=== PATIENT | female | born 1940 | race Caucasian/White ===

== ENCOUNTER 2016-05-12 06:04 | Day surgery (SDC) | payer OTHER ==
[~2016-05-12] VITALS: Ht 162.6 cm; Wt 84.0 kg
[~2016-05-12 06:04] MED LIST: ATOR40TA49 PO; CALCTAB11 OR; HCTZ25 PO; METO100T PO; MULT1TAB PO; NIFE1TAB85 PO; SERT-129 PO; VITA100017 PO; VITA400C28 PO; [UNRECOGNIZED DRUG - CODE] PO
[2016-05-12 06:58] VITALS: BP 143/92; PULSE 80; RESP 20; TEMP 97.8; O2SAT 90
[2016-05-12 07:34] LABS: AUTOMATED NEUTROPHIL # 7.4 TH/MM3 (1.8-7.7); BASOPHIL # 0.1 TH/MM3 (0-0.2); BASOPHIL % 0.6 % (0.0-2.0); EOSINOPHIL # 0.2 TH/MM3 (0-0.4); EOSINOPHIL % 1.6 % (0.0-4.0); HEMO FLAGS DIFF FINAL; LYMPH % 16.2 % (9.0-44.0); LYMPHOCYTE # 1.6 TH/MM3 (1.0-4.8); MEAN CORPUSCULAR HEMOGLOBIN 31.5 PG (27.0-34.0); MONO % 7.4 % (0.0-8.0); NEUT % 74.2 % (16.0-70.0); PLATELET COUNT 266 TH/MM3 (150-450); RED BLOOD COUNT 3.78 MIL/MM3 (4.00-5.30); RED CELL DISTRIBUTION WIDTH 14.1 % (11.6-17.2)
[2016-05-12 07:43] LABS: PROTHROMBIN TIME - PATIENT 11.3 SEC (9.8-11.6)
[2016-05-12 07:44] LABS: APTT (PATIENT) 28.3 SEC (24.3-30.1)
[2016-05-12] MEDS ORDERED: PRIL20CA9 PO (07:46)
[2016-05-12] MEDS ORDERED: AMLO5TAB2 PO (07:46)
[2016-05-12] MEDS ORDERED: ALPR0.25 PO (07:46)
[2016-05-12] MEDS ORDERED: HYDR25TA5 PO (07:46)
[2016-05-12] MEDS ORDERED: SERT-129 PO (07:46)
[2016-05-12] MEDS ORDERED: BUSP5TAB PO (07:46)
[2016-05-12] MEDS ORDERED: METO100T9 PO (07:46)
[2016-05-12] MEDS ORDERED: TRAM50TA PO (07:46)
[2016-05-12] MEDS ORDERED: ZOLP5TAB3 PO (07:46)
[2016-05-12] MEDS ORDERED: PERC7.5T13 PO (07:46)
[2016-05-12] MEDS ORDERED: LIDOCAINE 1%/EPINEPHrine 1:100,000 SOLN 30 ML VIAL ONE (07:56)
[2016-05-12] MEDS ORDERED: SODIUM CHLORIDE 0.9% 1000 ML IV SCH (08:00)
[2016-05-12] MEDS ORDERED: ceFAZolin 2 GM PREMIX 50 ML - implanted port/tunneled catheter insertion IV SCH (08:00)
[2016-05-12] MEDS ORDERED: CHLORHEXIDINE GLUCONATE 2 % 1 PACK (2 CLOTHS) TOPICAL SCH (08:00)
[2016-05-12] MEDS ORDERED: POVIDONE IODINE 5% (ANTISEPSIS KIT) 4 APPLICATIONS EACH NARE SCH (08:00)
[2016-05-12] MEDS ORDERED: VANCOMYCIN 1000 MG/NS 250 ML - implanted port/tunneled catheter IV SCH ×2 (08:00)
[2016-05-12] MEDS ORDERED: MIDAZOLAM HCL 5 MG/5 ML VIAL ONE (08:13)
[2016-05-12] MEDS ORDERED: fentaNYL CITRATE 250 MCG/5 ML AMP ONE (08:13)
[2016-05-12] MEDS ORDERED: IOHEXOL 350 MG/ML 50 ML BTL (for RAD DIAG) ONE (08:55)
[2016-05-12 09:30] VITALS: BP 134/78; PULSE 75; RESP 20; TEMP 98; O2SAT 90
[2016-05-12 09:45] VITALS: BP 125/78; PULSE 72; RESP 20; O2SAT 91
[2016-05-12 10:15] VITALS: BP 138/79; PULSE 74; RESP 20; O2SAT 90
--- NOTE | 2016-05-12 10:44 | PD.RAD ---
Post Procedure Progress Note Pre Procedure Diagnosis: (1) Lung cancer Post Procedure Diagnosis: (1) Lung cancer Procedure Date: May 12, 2016 Supervising Radiologist: Lanre Pearce Proceduralist/Assist: Princess Fajardo RT(R)(CV) Anesthesia: Local, Conscious Sedation Plan of Activity Patient to Unit: ROPU Patient Condition: Good See PACS Report for procedural detail/treatment Central Venous Access Device Procedure 1 Internal Jugular Infusaport Placement single lumen Welsh: 8 Lanre Pearce MD May 12, 2016 10:44
[2016-05-12 10:45] VITALS: BP 126/79; PULSE 77; RESP 20; O2SAT 92
[2016-05-12] MEDS ORDERED: SODIUM CHLORIDE 0.9% FLUSH 10 ML FLUSH IVF PRN (10:45)
[2016-05-12 11:31] VITALS: BP 122/72; PULSE 74; RESP 20; O2SAT 92
--- NOTE | 2016-05-12 14:10 | RADRPT ---
EXAM DATE/TIME: 05/12/2016 08:09 [facility] COMPARISON: No previous studies available for comparison. INDICATIONS : Patient with lung cancer in need of port placement for treatment. MEDICAL HISTORY : Lung cancer COPD Arthritis Anxiety Depression HTN History of ovarian cancer with chemo 1988 History of smoking quit 30 years ago SURGICAL HISTORY : Cyst removed from breast Bronch biopsy 2017 Colonoscopy 2006 Hysterectomy Appendectomy Hx of port placement ENCOUNTER: Initial ACUITY: 1 month PAIN SCORE: 0/10 FLUORO TIME: 5.5 minutes IMAGE SERIES: 1 SEDATION TIME: 60 minutes ACCESS: Left internal jugular vein SEDATION: 1.) 4 mg midazolam (Versed) IV 2.) 150 mcg fentanyl (Sublimaze) IV Prophylactic antibiotics were administered with appropriate pre-procedure timing. Vancomycin within 2 hours of procedure, Ancef (or alternative) within 1 hour of procedure. DEVICE: 1. 8 Macanese single lumen [id number]-[id number] PROCEDURE : 1. Continuous pulse oximetry and EKG monitoring. 2. Intravenous conscious sedation. 3. Ultrasound guidance for venous access. 4. Fluoroscopic guided implantable central venous port placement. The patient was placed supine. The neck was prepped in sterile fashion. Full sterile technique was u sed, including cap, mask, sterile gloves and gown, and a large sterile sheet. Hand hygiene and 2% ch lorhexidine Betadine was utilized per protocol for cutaneous antisepsis with appropriate dry time for site. The skin and subcutaneous tissues were infiltrated with local anesthetic solution. Under direct ultrasound guidance, central venous access was accomplished in the targeted vessel. The ultrasound images depicting access guidance were stored and saved to PACS for permanent record. A s ubcutaneous pocket was created using blunt dissection. The port was introduced to the pocket. The c atheter tubing was fed through a subcutaneous tunnel to the venotomy site. The catheter tubing was c ut to a suitable length and then was introduced through a valved Peel-Away sheath and positioned with catheter tubing tip at the cavo-atrial junction level. The pocket incision was closed with subcutic ular Vicryl suture. Steri-Strips were applied. The port was flushed and locked with heparin solutio n per protocol. Sterile dressing was applied to the site. The patient tolerated the procedure well. Conscious sedation was performed with the prescribed dosages and duration as above in the presence of an independent trained radiology nurse to assist in the monitoring of the patient. EKG and oximetry remained stable throughout the procedure. The patient tolerated the procedure well and there were no complications. The patient was sent to post anesthesia recovery in stable condition. CONCLUSION: Uncomplicated ultrasound and fluoroscopic guided implanted central venous port catheter placement as described in detail above. An 8 Macanese Power port was placed. Lanre Pearce MD on May 12, 2016 at 14:07 Board Certified Radiologist. This report was verified electronically.
== END 2016-05-12 11:36 | disposition home or self-care (01) ==
LOC: HROP 06:04 → HRIP 06:08 → HROP 11:36
PROVIDERS: ATTEND Radiology Radiation Oncology
DX: Z45.2 Encounter for adjustment and management of vascular access device (principal); C34.90 Malignant neoplasm of unspecified part of unspecified bronchus or lung; I10 Essential (primary) hypertension; J44.9 Chronic obstructive pulmonary disease, unspecified; F41.9 Anxiety disorder, unspecified; Z85.43 Personal history of malignant neoplasm of ovary; Z90.710 Acquired absence of both cervix and uterus; Z87.891 Personal history of nicotine dependence
CPT/HCPCS: 36561; 76937; 77001; 85025; 85610; 85730; 99152; 99153; C1769; C1788; C1887; J0690; J1642; J2250; J3010; J3370; J7050; Q9967

== ENCOUNTER 2016-05-20 09:43 | Emergency (ER) | payer OTHER ==
[~2016-05-20] VITALS: Ht 162.6 cm; Wt 84.0 kg
[~2016-05-20 09:43] MED LIST changes: +ALPR0.25 PO; +AMLO5TAB2 PO; -ATOR40TA49 PO; +BUSP5TAB PO; -CALCTAB11 OR; -HCTZ25 PO; +HYDR25TA5 PO; -METO100T PO; +METO100T9 PO; -MULT1TAB PO; -NIFE1TAB85 PO; +PERC7.5T13 PO; +PRIL20CA9 PO; +TRAM50TA PO; -VITA100017 PO; -VITA400C28 PO; +ZOLP5TAB3 PO; -[UNRECOGNIZED DRUG - CODE] PO
[2016-05-20 09:52] VITALS: BP 130/87; PULSE 98; RESP 21; TEMP 98.4; O2SAT 92
[2016-05-20 09:56] VITALS: O2SAT 95
--- NOTE | 2016-05-20 10:13 | PD ---
HPI Chief Complaint: Respiratory Distress Time Seen by Provider: 09:52 Travel History International Travel<30 days: No Contact w/Intl Traveler<30days: No Traveled to known affect area: No History of Present Illness HPI 76 years old female complains of shortness of breath. Patient started having coughing congestion since yesterday. Patient states the cough is intermittent and nonproductive. Patient denies any fever. Patient denies any chest pain. Patient states the shortness of breath is worse today. Patient has history of lung cancer stage III. Patient's on radiation and chemotherapy. Patient also has history of brain cancer in the past, status post surgery and chemotherapy in 1988. Patient has history of anxiety, arthritis, depression, hypertension. EMS was called. Patient was given albuterol treatment 2 prior to arrival. Patient's on continuous nasal cannula O2 at home. Patient's on 3 L nasal cannula. Patient also has inhaler at home for wheezing. Patient has poor appetite for the past 2 days. PFSH Past Medical History Cancer: Yes (OVARIAN CANCER - [place] CHEMO THERAPY 1988/left lung ca) Cardiovascular Problems: No Chemotherapy: Yes (05/16/16) Diabetes: No Endocrine: No Genitourinary: No Hepatitis: No Hiatal Hernia: No Immune Disorder: No Musculoskeletal: Yes (ARTHRITIS, HANDS, BACK & HIPS) Neurologic: No Psychiatric: Yes (ANXIETY ) Respiratory: Yes (left lung ca) Thyroid Disease: No ?: Not Past Surgical History Abdominal Surgery: Yes (APPY ) AICD: No Body Medical Devices: NONE Cardiac Surgery: No Ear Surgery: No Eye Surgery: No Genitourinary Surgery: No Gynecologic Surgery: Yes (TOTAL HYSTERECTOMY 1988; "2ND LOOK SURGERY" 1989) Hysterectomy: Yes Joint Replacement: No Oral Surgery: No Pacemaker: No Thoracic Surgery: Yes (LEFT BREAST BIOPSY - BENIGN 2002) Social History Tobacco Use: No Substance Use: No Allergies-Medications (Allergen,Severity, Reaction): Coded Allergies: No Known Allergies (Unverified , 05/20/16) Reported Meds & Prescriptions Reported Meds & Active Scripts Active Medrol Dosepak (Methylprednisolone) 4 Mg Dspk 4 Mg PO DIRECTED Per Pharmacist direction Reported Zolpidem (Zolpidem Tartrate) 5 Mg Tab 5 Mg PO HS PRN Tramadol (Tramadol HCl) 50 Mg Tab 50 Mg PO Q6H PRN Sertraline (Sertraline HCl) 100 Mg Tab 100 Mg PO DAILY Metoprolol Succinate ER 24 HR (Metoprolol Succinate) 100 Mg Tab 150 Mg PO BID Hydrochlorothiazide 25 Mg Tab 25 Mg PO DAILY Buspirone (Buspirone HCl) 5 Mg Tab 5 Mg PO BID Amlodipine (Amlodipine Besylate) 5 Mg Tab 5 Mg PO DAILY Prilosec (Omeprazole) 20 Mg Cap 20 Mg PO DAILY Percocet (Oxycodone-Acetaminophen) 7.5-325 mg Tab 1 Tab PO BID PRN Alprazolam 0.25 Mg Tab 0.25 Mg PO TID Review of Systems General / Constitutional: No: Fever Eyes: No: Visual changes HENT: No: Headaches Cardiovascular: No: Chest Pain or Discomfort Respiratory: Positive: Cough, Shortness of Breath Gastrointestinal: No: Abdominal Pain Genitourinary: No: Dysuria Musculoskeletal: No: Pain Skin: No Rash Neurologic: No: Weakness Psychiatric: No: Depression Endocrine: No: Polydipsia Hematologic/Lymphatic: No: Easy Bruising Physical Exam Narrative GENERAL: Well-nourished, well-developed patient. SKIN: Focused skin assessment warm/dry. HEAD: Normocephalic. EYES: No scleral icterus. No injection or drainage. NECK: Supple, trachea midline. No JVD or lymphadenopathy. CARDIOVASCULAR: Regular rate and rhythm without murmurs, gallops, or rubs. RESPIRATORY: Breath sounds equal bilaterally. No accessory muscle use. Patient had decreased breath sounds right lung with mild expiratory wheezes. Few rhonchi at the right base. GASTROINTESTINAL: Abdomen soft, non-tender, nondistended. MUSCULOSKELETAL: No cyanosis, or edema. BACK: Nontender without obvious deformity. No CVA tenderness. Neurologic exam normal. Data Data Last Documented VS Vital Signs Date Time Temp Pulse Resp B/P Pulse Ox O2 Delivery O2 Flow Rate FiO2 05/20/16 12:19 84 18 136/86 95 Nasal Cannula 3 05/20/16 09:52 98.4 Orders Electrocardiogram (05/20/16 09:52) Complete Blood Count With Diff (05/20/16 09:52) Comprehensive Metabolic Panel (05/20/16 09:52) Creatine Kinase (Cpk) (05/20/16 09:52) Troponin I (05/20/16 09:52) B-Type Natriuretic Peptide (05/20/16 09:52) Prothrombin Time / Inr (Pt) (05/20/16 09:52) Act Partial Throm Time (Ptt) (05/20/16 09:52) Blood Culture (05/20/16 09:52) Urinalysis - C+S If Indicated (05/20/16 09:52) Influenzae A/B Antigen (05/20/16 09:52) Chest, Single Ap (05/20/16 09:52) Iv Access Insert/Monitor (05/20/16 09:52) Ecg Monitoring (05/20/16 09:52) Oximetry (05/20/16 09:52) Sodium Chlorid 0.9% 500 Ml Inj (Ns 500 M (05/20/16 12:45) Potassium Chloride (Kcl) (05/20/16 12:45) Dexamethasone Inj (Decadron Inj) (05/20/16 13:00) Heparin Central Flush (Heparin Central F (05/20/16 13:00) Labs Laboratory Tests Test 05/20/16 05/20/16 10:17 12:13 White Blood Count 10.8 TH/MM3 Red Blood Count 3.99 MIL/MM3 Hemoglobin 12.3 GM/DL Hematocrit 35.7 % Mean Corpuscular Volume 89.5 FL Mean Corpuscular Hemoglobin 30.9 PG Mean Corpuscular Hemoglobin 34.5 % Concent Red Cell Distribution Width 14.1 % Platelet Count 324 TH/MM3 Mean Platelet Volume 7.8 FL Neutrophils (%) (Auto) 82.1 % Lymphocytes (%) (Auto) 8.3 % Monocytes (%) (Auto) 8.7 % Eosinophils (%) (Auto) 0.3 % Basophils (%) (Auto) 0.6 % Neutrophils # (Auto) 8.9 TH/MM3 Lymphocytes # (Auto) 0.9 TH/MM3 Monocytes # (Auto) 0.9 TH/MM3 Eosinophils # (Auto) 0.0 TH/MM3 Basophils # (Auto) 0.1 TH/MM3 CBC Comment DIFF FINAL Differential Comment Prothrombin Time 11.6 SEC Prothromb Time International 1.0 RATIO Ratio Activated Partial 29.1 SEC Thromboplast Time Sodium Level 137 MEQ/L Potassium Level 3.2 MEQ/L Chloride Level 98 MEQ/L Carbon Dioxide Level 30.6 MEQ/L Anion Gap 8 MEQ/L Blood Urea Nitrogen 15 MG/DL Creatinine 0.61 MG/DL Estimat Glomerular Filtration 95 ML/MIN Rate Random Glucose 135 MG/DL Calcium Level 9.3 MG/DL Total Bilirubin 0.6 MG/DL Aspartate Amino Transf 18 U/L (AST/SGOT) Alanine Aminotransferase 26 U/L (ALT/SGPT) Alkaline Phosphatase 83 U/L Total Creatine Kinase 38 U/L Troponin I LESS THAN 0.02 NG/ML B-Type Natriuretic Peptide 57 PG/ML Total Protein 7.4 GM/DL Albumin 3.4 GM/DL Urine Color YELLOW Urine Turbidity CLEAR Urine pH 7.5 Urine Specific [place] 1.013 Urine Protein NEG mg/dL Urine Glucose (UA) NEG mg/dL Urine Ketones NEG mg/dL Urine Occult Blood NEG Urine Nitrite NEG Urine Bilirubin NEG Urine Urobilinogen LESS THAN 2.0 MG/DL Urine Leukocyte Esterase NEG Urine RBC 5 /hpf Urine WBC 1 /hpf Urine Squamous Epithelial <1 /hpf Cells Urine Amorphous Sediment RARE Urine Mucus FEW /lpf Microscopic Urinalysis Comment CULT NOT INDICATED MDM Medical Decision Making Medical Screen Exam Complete: Yes Emergency Medical Condition: Yes Medical Record Reviewed: Yes Interpretation(s) Last Impressions Chest X-Ray 05/20/16 0952 Signed Impressions: Service Date/Time: Friday, May 20, 2016 09:58 - CONCLUSION: 1. 9.4 x 5.7 cm right superior hilar/mediastinal mass lesion consistent with the provided history of lung carcinoma. 2. Lungs are otherwise clear with no acute infiltrate. 3. Left IJ Bukdvf-v-[id number] catheter López Solares MD 12:37 PM. CBC WBC 10.8. Hemoglobin 12.3 hematocrit 35.7. 82 neutrophil. Potassium 3.2. Cardiac enzymes are normal. BNP 57. UA is negative Differential Diagnosis Differential diagnosis including URI, bronchitis, pneumonia, PE, pneumothorax. Narrative Course 76 years old female with coughing and shortness of breath. History of lung CA. Patient was given albuterol treatment 2 by EMS. KCl 40 mEq by mouth given. Normal saline solution 500 cc IV bolus. Decadron 4 mg IV. I spoke with Dr. Johnson. Agreed with the plan. Diagnosis Primary Impression: Dyspnea Qualified Code: R06.02 - Shortness of breath Additional Impression: History of lung cancer Patient Instructions: General Instructions Additional Instructions: Continue inhaler as directed. Take medications as directed. Follow-up with personal physician. Return if worse. Med/Other Pt SpecificInfo: Prescription(s) given Scripts Methylprednisolone Dosepak (Medrol Dosepak)4 Mg Dspk4 Mg PO DIRECTED #1 DSPK Ref 0 Per Pharmacist direction Prov:Kenyon Parker MD 05/20/16 Disposition: 01 DISCHARGE HOME Condition: Stable Kenyon Parker MD May 20, 2016 10:13
--- NOTE | 2016-05-20 10:23 | RADRPT ---
EXAM DATE/TIME: 05/20/2016 09:58 [facility] COMPARISON: CT SIMULATION, May 09, 2016, 13:27. INDICATIONS : Patient complains of difficulty breathing. MEDICAL HISTORY : Carcinoma, lung. Patient receiving chemo and rad tx. SURGICAL HISTORY : None. ENCOUNTER: Initial ACUITY: 1 day PAIN SCORE: 0/10 LOCATION: Bilateral chest FINDINGS: A single view of the chest demonstrates a large, superior right mediastinal 9.4 x 5.7 cm mass lesion. Lungs are otherwise clear. Left IJ Xiuobg-k-Hizp catheter with tip projecting over the central venou s system. Heart size is normal. Osseous structures are intact. CONCLUSION: 1. 9.4 x 5.7 cm right superior hilar/mediastinal mass lesion consistent with the provided history of lung carcinoma. 2. Lungs are otherwise clear with no acute infiltrate. 3. Left IJ Zxwawh-h-Okim catheter López Solares MD on May 20, 2016 at 10:19 Board Certified Radiologist. This report was verified electronically.
[2016-05-20 10:34] LABS: AUTOMATED NEUTROPHIL # 8.9 TH/MM3 (1.8-7.7); BASOPHIL # 0.1 TH/MM3 (0-0.2); BASOPHIL % 0.6 % (0.0-2.0); EOSINOPHIL % 0.3 % (0.0-4.0); HEMATOCRIT 35.7 % (35.0-46.0); HEMO FLAGS DIFF FINAL; LYMPH % 8.3 % (9.0-44.0); LYMPHOCYTE # 0.9 TH/MM3 (1.0-4.8); MEAN CELL VOLUME 89.5 FL (80.0-100.0); MEAN CORPUSCULAR HEMOGLOBIN 30.9 PG (27.0-34.0); MEAN CORPUSCULAR HGB CONC 34.5 % (32.0-36.0); MONO % 8.7 % (0.0-8.0); NEUT % 82.1 % (16.0-70.0); PLATELET COUNT 324 TH/MM3 (150-450); RED BLOOD COUNT 3.99 MIL/MM3 (4.00-5.30); RED CELL DISTRIBUTION WIDTH 14.1 % (11.6-17.2); WHITE BLOOD COUNT 10.8 TH/MM3 (4.0-11.0)
[2016-05-20 10:45] LABS: APTT (PATIENT) 29.1 SEC (24.3-30.1); PROTHROMBIN TIME - PATIENT 11.6 SEC (9.8-11.6)
[2016-05-20 10:48] LABS: ALT (GPT) 26 U/L (10-53); ANION GAP 8 MEQ/L (5-15); AST (GOT) 18 U/L (15-37); BICARBONATE 30.6 MEQ/L (21.0-32.0); BLOOD UREA NITROGEN 15 MG/DL (7-18); CHLORIDE 98 MEQ/L (98-107); GLOMERULAR FILTRATION RATE 95 ML/MIN (>89); POTASSIUM 3.2 MEQ/L (3.5-5.1); SODIUM (NA) 137 MEQ/L (136-145)
[2016-05-20 10:52] LABS: ALKALINE PHOSPHATASE 83 U/L (45-117); TOTAL BILIRUBIN ADULT 0.6 MG/DL (0.2-1.0)
[2016-05-20 11:03] LABS: CREATINE KINASE 38 U/L (26-192)
[2016-05-20 12:19] VITALS: BP 136/86; PULSE 84; RESP 18; O2SAT 95
[2016-05-20 12:31] LABS: BLOOD, URINE NEG (NEG); COMMENT (UR) CULT NOT INDICATED; CULTURE IF INDICATED CULT NOT INDICATED; GLUCOSE,URINE NEG (NEG); KETONE, URINE NEG (NEG); MUCUS URINE FEW /lpf (OCC); NITRITE,URINE NEG (NEG); PH, URINE 7.5 (5.0-8.5); SQUAMOUS EPITHELIAL CELL URINE <1 /hpf (0-5); URINE COLOR YELLOW (YELLW/STRAW)
[2016-05-20] MEDS ORDERED: SODIUM CHLORID 0.9% 500 ML INJ 500 ML IV ONE (12:45)
[2016-05-20] MEDS ORDERED: POTASSIUM CHLORIDE 20 MEQ CONTROLLED RELEASE TAB PO ONE (12:45)
[2016-05-20] MEDS ORDERED: MEDR4PAK PO (12:51)
[2016-05-20] MEDS ORDERED: DEXAMETHASONE SOD PHOS 4 MG/ML VIAL IV PUSH ONE (13:00)
[2016-05-20 14:20] VITALS: BP 125/88
== END 2016-05-20 16:00 | disposition home or self-care (01) ==
LOC: NEPA 09:43
DX: R06.02 Shortness of breath (principal); Z85.118 Personal history of other malignant neoplasm of bronchus and lung
CPT/HCPCS: 71010; 80053; 81001; 82550; 83880; 84484; 85025; 85610; 85730; 87040; 87804; 96374; 99285; J1100; J7040

== ENCOUNTER 2016-11-21 10:48 | Inpatient (IN) | payer OTHER, MEDICARE ==
[~2016-11-21] VITALS: Ht 165.1 cm; Wt 82.0 kg
[~2016-11-21 10:48] MED LIST changes: +MEDR4PAK PO
[2016-11-21 10:50] VITALS: BP 103/59; PULSE 101; RESP 13; TEMP 97.7; O2SAT 96
[2016-11-21 11:16] VITALS: BP 147/65; PULSE 97; RESP 15; TEMP 98.1; O2SAT 99
--- NOTE | 2016-11-21 11:24 | PD ---
HPI Chief Complaint: Allergic/Adverse Reaction Time Seen by Provider: 11:23 Travel History International Travel<30 days: No Contact w/Intl Traveler<30days: No Traveled to known affect area: No History of Present Illness HPI 76-year-old female presents to the emergency department for evaluation of cough , congestion, shortness of breath, intermittent vomiting. Patient states that she has lung cancer with tumor on the right side. She states that she has been undergoing chemotherapy since April. She just started a new around maintenance chemotherapy. Her chemotherapy treatment was October. She states that usually she does not feel well for a few days after chemotherapy , but then usually will feel better. However, she has been feeling worse. She reports intermittent shortness of breath, right-sided chest pain, cough. She also reports small amount of hemoptysis x1 episode. Patient denies metastasis of lung cancer. Her oncologist is Dr. Johnson as well as her chemotherapy doctor. Patient is here with her son at bedside. Her son states she had a max temp of 99.1 last night. The patient denies any abdominal pain. She does report intermittent vomiting. She also reports a decreased appetite. Patient is on 2-3 L O2 nasal cannula at home. The patient also reports a mild itching to the neck and head. No swelling lips, tongue, throat. She has had the same chemotherapy treatment in the past. PFSH Past Medical History Anxiety: Yes Cancer: Yes (OVARIAN CANCER - [place] CHEMO THERAPY 1988/left lung ca) Cardiovascular Problems: Yes Chemotherapy: Yes (05/16/16) Diabetes: No Diminished Hearing: No Endocrine: No Genitourinary: No Hepatitis: No Hiatal Hernia: No Hypertension: Yes Immune Disorder: No Implanted Vascular Access Dvce: Yes (PORT L CHEST) Musculoskeletal: Yes (ARTHRITIS, HANDS, BACK & HIPS) Neurologic: No Psychiatric: Yes (ANXIETY ) Respiratory: Yes (left lung ca) Thyroid Disease: No Past Surgical History Abdominal Surgery: Yes (APPY ) AICD: No Body Medical Devices: NONE Cardiac Surgery: No Ear Surgery: No Eye Surgery: No Genitourinary Surgery: No Gynecologic Surgery: Yes (TOTAL HYSTERECTOMY 1988; "2ND LOOK SURGERY" 1989) Hysterectomy: Yes Joint Replacement: No Oral Surgery: No Pacemaker: No Thoracic Surgery: Yes (LEFT BREAST BIOPSY - BENIGN 2002) Other Surgery: Yes Social History Alcohol Use: No Tobacco Use: No Substance Use: No Allergies-Medications (Allergen,Severity, Reaction): Uncoded Allergies: Taxol/Taxotere (Adverse Reaction, Severe, Facial flushing and shortness of breath, 06/13/16) Reported Meds & Prescriptions Reported Meds & Active Scripts Active Reported Potassium Chloride ER (Potassium Chloride) 20 Meq Tab 40 Meq PO BID Folic Acid 0.4 Mg Tab 400 Mcg PO DAILY Hydromet Liq (Hydrocodone Bit/Homatropine Methylb) 5-1.5 Mg/5 Ml Syrp 7 Ml PO BID PRN Tramadol (Tramadol HCl) 50 Mg Tab 50 Mg PO Q6H PRN Sertraline (Sertraline HCl) 100 Mg Tab 100 Mg PO DAILY Metoprolol Succinate ER 24 HR (Metoprolol Succinate) 100 Mg Tab 150 Mg PO BID Hydrochlorothiazide 25 Mg Tab 25 Mg PO DAILY Buspirone (Buspirone HCl) 5 Mg Tab 5 Mg PO BID Amlodipine (Amlodipine Besylate) 5 Mg Tab 5 Mg PO DAILY Alprazolam 0.25 Mg Tab 0.25 Mg PO TID Review of Systems Except as stated in HPI: all other systems reviewed are Neg Physical Exam Narrative GENERAL: Well-nourished, well-developed elderly female patient, afebrile. SKIN: Focused skin assessment warm/dry. HEAD: Normocephalic. Atraumatic. ENT: Mucosa pink and moist. No erythema or exudates. No uvular edema. No uvular , palatal, or tonsillar deviation. Airway patent. Nasal turbinates appear normal without nasal blood, purulent drainage or septal hematoma. EYES: No scleral icterus. No injection or drainage. NECK: Supple, trachea midline. No JVD or lymphadenopathy. CARDIOVASCULAR: Regular rate and rhythm without murmurs, gallops, or rubs. Bilateral radial and pedal pulses are 2+. RESPIRATORY: Breath sounds equal bilaterally. No accessory muscle use. Lungs sounds are diminished on the right side. GASTROINTESTINAL: Abdomen soft, non-tender, nondistended. MUSCULOSKELETAL: No cyanosis, or edema. BACK: Nontender without obvious deformity. No CVA tenderness. Data Data Last Documented VS Vital Signs Date Time Temp Pulse Resp B/P (MAP) Pulse Ox O2 Delivery O2 Flow Rate FiO2 11/21/16 11:33 98 Nasal Cannula 3.00 11/21/16 11:16 98.1 97 15 Orders Orders Complete Blood Count With Diff (11/21/16 11:24) Comprehensive Metabolic Panel (11/21/16 11:24) Act Partial Throm Time (Ptt) (11/21/16 11:24) Prothrombin Time / Inr (Pt) (11/21/16 11:24) Magnesium (Mg) (11/21/16 11:24) Ckmb (Isoenzyme) Profile (11/21/16 11:24) Troponin I (11/21/16 11:24) Urinalysis - C+S If Indicated (11/21/16 11:24) Blood Culture (11/21/16 11:24) Iv Access Insert/Monitor (11/21/16 11:24) Electrocardiogram (11/21/16 11:24) Ecg Monitoring (11/21/16 11:24) Oximetry (11/21/16 11:24) Oxygen Administration (11/21/16 11:24) Chest, Single Ap (11/21/16 11:24) Ct Pulmonary Angiogram (11/21/16 11:24) Sodium Chloride 0.9% Flush (Ns Flush) (11/21/16 11:30) Lactic Acid Sepsis Protocol (11/21/16 11:24) Sodium Chlorid 0.9% 500 Ml Inj (Ns 500 M (11/21/16 11:30) Ondansetron Inj (Zofran Inj) (11/21/16 11:30) CKMB (11/21/16 11:55) CKMB% (11/21/16 11:55) Aspirin Chew (Aspirin Chew) (11/21/16 13:45) B-Type Natriuretic Peptide (11/21/16 13:43) Alprazolam (Xanax) (11/21/16 18:00) Amlodipine (Norvasc) (11/22/16 09:00) Buspirone (Buspar) (11/21/16 21:00) Hydrochlorothiazide (Hydrodiuril) (11/22/16 09:00) Potassium Chloride (Kcl) (11/21/16 21:00) Sertraline (Zoloft) (11/22/16 09:00) Metoprolol Succinate Er (Toprol Xl) (11/21/16 21:00) Admit Order (Ed Use Only) (11/21/16 14:19) Labs Laboratory Tests Test 11/21/16 11:55 White Blood Count 4.2 TH/MM3 Red Blood Count 2.52 MIL/MM3 Hemoglobin 8.5 GM/DL Hematocrit 25.1 % Mean Corpuscular Volume 99.5 FL Mean Corpuscular Hemoglobin 33.7 PG Mean Corpuscular Hemoglobin Concent 33.9 % Red Cell Distribution Width 16.4 % Platelet Count 140 TH/MM3 Mean Platelet Volume 7.1 FL CBC Comment AUTO DIFF Differential Total Cells Counted 100 Neutrophils % (Manual) 61 % Lymphocytes % 16 % Monocytes % 22 % Basophils % 1 % Neutrophils # (Manual) 2.6 TH/MM3 Differential Comment FINAL DIFF MANUAL Hypersegmented Polys 1+ Ovalocytes 1+ Prothrombin Time 12.0 SEC Prothromb Time International Ratio 1.1 RATIO Activated Partial Thromboplast Time 29.4 SEC Blood Urea Nitrogen 11 MG/DL Creatinine 0.86 MG/DL Random Glucose 132 MG/DL Total Protein 7.7 GM/DL Albumin 3.0 GM/DL Calcium Level 9.3 MG/DL Magnesium Level 1.3 MG/DL Alkaline Phosphatase 64 U/L Aspartate Amino Transf (AST/SGOT) 24 U/L Alanine Aminotransferase (ALT/SGPT) 16 U/L Total Bilirubin 0.6 MG/DL Sodium Level 134 MEQ/L Potassium Level 3.2 MEQ/L Chloride Level 94 MEQ/L Carbon Dioxide Level 30.3 MEQ/L Anion Gap 10 MEQ/L Estimat Glomerular Filtration Rate 64 ML/MIN Lactic Acid Level 1.6 mmol/L Total Creatine Kinase 111 U/L Creatine Kinase MB 3.1 NG/ML Troponin I 0.24 NG/ML MDM Medical Decision Making Medical Screen Exam Complete: Yes Emergency Medical Condition: Yes Medical Record Reviewed: Yes Interpretation(s) chest x-ray - CONCLUSION: 1. Decrease in size of right lung mass since May 20 with residual abnormal soft tissue in the right paramediastinal region. There is also interval development of a large right pleural effusion that is at least partially loculated. Differential Diagnosis Pneumonia versus PE versus ACS versus electrolyte abnormality versus URI versus UTI Narrative Course 76-year-old elderly female presents to the emergency department for evaluation of cough, congestion, intermittent vomiting, shortness of breath since having chemotherapy treatment last , but worsening. Patient is concerned she may have pneumonia. PE is also in the differential as well. EKG, CBC, CMP, magnesium, CK, troponin, PTT, PT/INR, UA, blood cultures 2, lactic acid are ordered and pending. Chest x-ray, CT pulmonary angiogram are ordered and pending. Patient is given normal saline 500 mL bolus, Zofran 4 mg IV. EKG shows sinus rhythm, heart rate 96, no acute ST changes. CBC shows anemia of 8.5, 25.1. CMP shows hypokalemia of 3.2, glucose 132. Magnesium is 1.3. CK is 111. Troponin is 0.24. Lactic acid is 1.6. Coags show no acute abnormality. Chest x-ray shows decrease in size of right lung mass since May 20 with residual abnormal soft tissue in the right paramediastinal region. There is also interval development of a large right pleural effusion that is at least partially loculated. CT pulmonary angiogram shows no pulmonary embolus, large right effusion and right lung atelectasis. Patient will be admitted for further evaluation. Dr. Barton accepted admission. Diagnosis Primary Impression: Pleural effusion Additional Impressions: Dyspnea Qualified Codes: R06.02 - Shortness of breath History of lung cancer Admitting Information Admitting Physician Requests: Admit Jessika Persaud Nov 21, 2016 11:24
[2016-11-21] MEDS ORDERED: HYCOS PO (11:26)
[2016-11-21] MEDS ORDERED: POTA-163 PO (11:27)
[2016-11-21] MEDS ORDERED: FOLI400T PO (11:27)
[2016-11-21] MEDS ORDERED: SODIUM CHLORIDE 0.9% FLUSH 10 ML FLUSH IVF PRN (11:30)
[2016-11-21] MEDS ORDERED: ONDANSETRON HCL 4 MG/2 ML VIAL IV PUSH ONE (11:30)
[2016-11-21] MEDS ORDERED: SODIUM CHLORID 0.9% 500 ML INJ 500 ML IV ONE (11:30)
[2016-11-21 11:33] VITALS: O2SAT 98; O2SAT 99
[2016-11-21 12:09] LABS: HEMATOCRIT 25.1 % (35.0-46.0); MEAN CELL VOLUME 99.5 FL (80.0-100.0); MEAN CORPUSCULAR HEMOGLOBIN 33.7 PG (27.0-34.0); MEAN CORPUSCULAR HGB CONC 33.9 % (32.0-36.0); PLATELET COUNT 140 TH/MM3 (150-450); RED BLOOD COUNT 2.52 MIL/MM3 (4.00-5.30); RED CELL DISTRIBUTION WIDTH 16.4 % (11.6-17.2); WHITE BLOOD COUNT 4.2 TH/MM3 (4.0-11.0)
[2016-11-21 12:11] LABS: HEMO FLAGS AUTO DIFF
[2016-11-21 12:22] LABS: INTERNATIONAL NORMALIZED RATIO 1.1 RATIO
[2016-11-21 12:24] LABS: APTT (PATIENT) 29.4 SEC (24.3-30.1)
--- NOTE | 2016-11-21 12:26 | RADRPT ---
EXAM DATE/TIME: 11/21/2016 12:11 [facility] COMPARISON: CHEST SINGLE AP, May 20, 2016, 9:58. INDICATIONS : Shortness of breath. MEDICAL HISTORY : Carcinoma, lung. SURGICAL HISTORY : Infusaport ENCOUNTER: Initial ACUITY: 3 days PAIN SCORE: 0/10 LOCATION: Bilateral chest FINDINGS: Compare May 20. Previous right hilar mass is decreased in size. There is now a large right-sided pl eural effusion. Left-sided [id number] is in the right atrium. Minimal left basal atelectasis. No s ignificant left effusion. No pneumothorax. CONCLUSION: 1. Decrease in size of right lung mass since May 20 with residual abnormal soft tissue in the right paramediastinal region. There is also interval development of a large right pleural effusion that is at least partially loculated. Sam Mace MD on November 21, 2016 at 12:23 Board Certified Radiologist. This report was verified electronically.
[2016-11-21 12:35] LABS: ALT (GPT) 16 U/L (10-53); ANION GAP 10 MEQ/L (5-15); AST (GOT) 24 U/L (15-37); BICARBONATE 30.3 MEQ/L (21.0-32.0); BLOOD UREA NITROGEN 11 MG/DL (7-18); CHLORIDE 94 MEQ/L (98-107); GLOMERULAR FILTRATION RATE 64 ML/MIN (>89); MAGNESIUM 1.3 MG/DL (1.5-2.5); POTASSIUM 3.2 MEQ/L (3.5-5.1); SODIUM (NA) 134 MEQ/L (136-145)
[2016-11-21 12:40] LABS: ALKALINE PHOSPHATASE 64 U/L (45-117); CREATINE KINASE 111 U/L (26-192); TOTAL BILIRUBIN ADULT 0.6 MG/DL (0.2-1.0)
[2016-11-21 12:52] LABS: CKMB 3.1 NG/ML (0.5-3.6)
[2016-11-21 12:58] LABS: BASOPHILS 1 % (0-2); HYPERSEGMENTED POLYS 1+ (NORMAL); NEUTROPHIL # MANUAL DIFF 2.6 TH/MM3 (1.8-7.7); POLYS (SEG NEUTROPHILS) 61 % (16-70); WBC DIFF SAMPLE 100
[2016-11-21 13:00] LABS: OVALOCYTES 1+ (NORMAL); SCAN/DIFF FINAL DIFF MANUAL
--- NOTE | 2016-11-21 13:17 | PD ---
Physical Exam Narrative I, Dr. Morales, have reviewed the advance practice practitioner's documentation and am in agreement, met with the patient face to face, made the diagnosis, and the medical decision making was done by me. *My assessment and Findings: Pleural effusion vs. PE vs. pneumonia vs. ACS 76yo F with lung CA here with c/o sob for a few days as well as 1 episode of pinkish sputum. Pt with right sided chest pain as well and this is the side of her cancer. Her oncologist is Dr. Johnson and she just had chemotherapy . Pt is well appearing on 3 L NC which is what she is normally on and is saturating at 99%. Labs reviewed, no leukocytosis. H/H low at 8.5/25.1. Mild hypokalemia at 3.2. Troponin elevated at 0.24. Chest pain seems very pleuritic and is right sided, sharp, only there when she coughs. There is no ST segment elevation or depression on EKG. Will trend and consult cardiology. Currently no chest pain. CXR showed decreased size right lung mass. Interval decrease of a large pleural effusion that is at least partially loculated. Will do CT angio to further evaluate pleural effusion as well as evaluate for PE. CT angio showed no PE, large right pleural effusion. Discussed with Dr. Barton and accepted to his service. Data Data Last Documented VS Vital Signs Date Time Temp Pulse Resp B/P (MAP) Pulse Ox O2 Delivery O2 Flow Rate FiO2 11/21/16 11:33 99 Nasal Cannula 3.00 11/21/16 11:33 11/21/16 11:16 98.1 97 15 Orders Orders Complete Blood Count With Diff (11/21/16 11:24) Comprehensive Metabolic Panel (11/21/16 11:24) Act Partial Throm Time (Ptt) (11/21/16 11:24) Prothrombin Time / Inr (Pt) (11/21/16 11:24) Magnesium (Mg) (11/21/16 11:24) Ckmb (Isoenzyme) Profile (11/21/16 11:24) Troponin I (11/21/16 11:24) Urinalysis - C+S If Indicated (11/21/16 11:24) Blood Culture (11/21/16 11:24) Iv Access Insert/Monitor (11/21/16 11:24) Electrocardiogram (11/21/16 11:24) Ecg Monitoring (11/21/16 11:24) Oximetry (11/21/16 11:24) Oxygen Administration (11/21/16 11:24) Chest, Single Ap (11/21/16 11:24) Ct Pulmonary Angiogram (11/21/16 11:24) Sodium Chloride 0.9% Flush (Ns Flush) (11/21/16 11:30) Lactic Acid Sepsis Protocol (11/21/16 11:24) Sodium Chlorid 0.9% 500 Ml Inj (Ns 500 M (11/21/16 11:30) Ondansetron Inj (Zofran Inj) (11/21/16 11:30) CKMB (11/21/16 11:55) CKMB% (11/21/16 11:55) Aspirin Chew (Aspirin Chew) (11/21/16 13:45) B-Type Natriuretic Peptide (11/21/16 13:43) Alprazolam (Xanax) (11/21/16 18:00) Amlodipine (Norvasc) (11/22/16 09:00) Buspirone (Buspar) (11/21/16 21:00) Hydrochlorothiazide (Hydrodiuril) (11/22/16 09:00) Potassium Chloride (Kcl) (11/21/16 21:00) Sertraline (Zoloft) (11/22/16 09:00) Metoprolol Succinate Er (Toprol Xl) (11/21/16 21:00) Admit Order (Ed Use Only) (11/21/16 14:19) Labs Laboratory Tests Test 11/21/16 11:55 White Blood Count 4.2 TH/MM3 Red Blood Count 2.52 MIL/MM3 Hemoglobin 8.5 GM/DL Hematocrit 25.1 % Mean Corpuscular Volume 99.5 FL Mean Corpuscular Hemoglobin 33.7 PG Mean Corpuscular Hemoglobin Concent 33.9 % Red Cell Distribution Width 16.4 % Platelet Count 140 TH/MM3 Mean Platelet Volume 7.1 FL CBC Comment AUTO DIFF Differential Total Cells Counted 100 Neutrophils % (Manual) 61 % Lymphocytes % 16 % Monocytes % 22 % Basophils % 1 % Neutrophils # (Manual) 2.6 TH/MM3 Differential Comment FINAL DIFF MANUAL Hypersegmented Polys 1+ Ovalocytes 1+ Prothrombin Time 12.0 SEC Prothromb Time International Ratio 1.1 RATIO Activated Partial Thromboplast Time 29.4 SEC Blood Urea Nitrogen 11 MG/DL Creatinine 0.86 MG/DL Random Glucose 132 MG/DL Total Protein 7.7 GM/DL Albumin 3.0 GM/DL Calcium Level 9.3 MG/DL Magnesium Level 1.3 MG/DL Alkaline Phosphatase 64 U/L Aspartate Amino Transf (AST/SGOT) 24 U/L Alanine Aminotransferase (ALT/SGPT) 16 U/L Total Bilirubin 0.6 MG/DL Sodium Level 134 MEQ/L Potassium Level 3.2 MEQ/L Chloride Level 94 MEQ/L Carbon Dioxide Level 30.3 MEQ/L Anion Gap 10 MEQ/L Estimat Glomerular Filtration Rate 64 ML/MIN Lactic Acid Level 1.6 mmol/L Total Creatine Kinase 111 U/L Creatine Kinase MB 3.1 NG/ML Troponin I 0.24 NG/ML MDM Supervised Visit with JOHN: Yes Interpretation(s) EKG: NSR 96bpm. Normal axis. TWI III and V2. No ST segment elevation or depression. Diagnosis Primary Impression: Pleural effusion Admitting Information Admitting Physician Requests: Admit Bre Morales DO Nov 21, 2016 13:17
[2016-11-21] MEDS ORDERED: ASPIRIN 81 MG CHEW TAB CHEW ONE (13:45)
[2016-11-21] MEDS ORDERED: IOHEXOL 350 MG/ML 10 ML VIAL (for RAD DIAG) IVCONTRAST ONE (14:17)
[2016-11-21] MEDS ORDERED: NALOXONE HCL 0.4 MG/ML AMP IV PUSH PRN (14:30)
[2016-11-21] MEDS ORDERED: BISACODYL 10 MG SUPP RECTAL PRN (14:30)
[2016-11-21] MEDS ORDERED: SODIUM CHLORIDE 0.9% FLUSH 10 ML FLUSH IV FLUSH PRN (14:30)
[2016-11-21] MEDS ORDERED: ACETAMINOPHEN/HYDROcodone 325 MG/5 MG TAB PO PRN (14:30)
[2016-11-21] MEDS ORDERED: ONDANSETRON HCL 4 MG/2 ML VIAL IVP PRN (14:30)
[2016-11-21] MEDS ORDERED: LACTULOSE SYRUP 20 GM/30 ML CUP PO PRN (14:30)
[2016-11-21] MEDS ORDERED: SENNOSIDES 8.6 MG TAB PO PRN (14:30)
[2016-11-21] MEDS ORDERED: MAGNESIUM HYDROXIDE SUSP 30 ML CUP PO PRN (14:30)
--- NOTE | 2016-11-21 14:41 | RADRPT ---
EXAM DATE/TIME: 11/21/2016 14:17 [place] COMPARISON: CHEST SINGLE AP, November 21, 2016, 12:11. INDICATIONS : Shortness of breath. IV CONTRAST: 73 cc Omnipaque 350 (iohexol) IV RADIATION DOSE: 23.38 CTDIvol (mGy) MEDICAL HISTORY : Cardiovascular disease. Hypertension. ovarian cancer SURGICAL HISTORY : Hysterectomy. ENCOUNTER: Initial ACUITY: 1 day PAIN SCALE: 0/10 LOCATION: Bilateral chest TECHNIQUE: Volumetric scanning of the chest was performed using a pulmonary embolism protocol MIP images were re constructed. Using automated exposure control and adjustment of the mA and/or kV according to patien t size, radiation dose was kept as low as reasonably achievable to obtain optimal diagnostic quality images. DICOM format image data is available electronically for review and comparison. Follow-up recommendations for detected pulmonary nodules are based at a minimum on nodule size and pa tient risk factors according to Fleischner Society Guidelines. FINDINGS: PULMONARY ARTERIES: No filling defects are seen in the pulmonary arteries through the segmental level. LUNGS: There is extensive right lung atelectasis associated with very large right effusion . PLEURAE: Large right effusion. MEDIASTINUM: There is good visualization of the great vessels of the middle mediastinum. No evidence of mediastin al or hilar adenopathy/mass. MUSCULOSKELETAL: Within normal limits for patient age. MISCELLANEOUS: The visualized upper abdominal organs demonstrate no acute abnormality. CONCLUSION: No pulmonary embolism. Large right effusion and right lung atelectasis. Lanre Pearce MD on November 21, 2016 at 14:34 Board Certified Radiologist. This report was verified electronically.
[2016-11-21] MEDS: MAGNESIUM SULFATE 1 GM PREMIX 100 ML IV SCH ×2 (16:05→18:22)
[2016-11-21 17:00] LABS: BACTERIA, URINE RARE /hpf; BLOOD, URINE TRACE (NEG); COMMENT (UR) CULT NOT INDICATED; CULTURE IF INDICATED CULT NOT INDICATED; GLUCOSE,URINE NEG (NEG); HYALINE CAST, URINE 7 /lpf (RARE); KETONE, URINE NEG (NEG); MUCUS URINE FEW /lpf (OCC); NITRITE,URINE NEG (NEG); SQUAMOUS EPITHELIAL CELL URINE 1 /hpf (0-5); TRANSITIONAL EPI CELLS, URINE 1 /hpf; URINE COLOR YELLOW (YELLW/STRAW)
--- NOTE | 2016-11-21 17:06 | HHI.HP ---
HPI Service [facility] Hospitalists Primary Care Physician Lanre García DO Admission Diagnosis large right pleural effusion, elevated troponin Diagnoses: Chief Complaint: Cough SOB Chest pain Travel History International Travel<30 Days: No Contact w/Intl Traveler <30 Da: No Traveled to Known Affected Are: No History of Present Illness Written by Inez Sarmiento PA-C acting as scribe for Dr. Barton on 11/21/16 at 16:53. 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 Johnson who presents to [facility] ED with complaints of cough and shortness of breath 1 week. Patient states that she began receiving maintenance chemotherapy last Monday and since beginning that treatment has noted increasing cough. Patient states that when she coughs she gets short of breath. She also endorses shortness of breath with minimal exertion. She also occasionally experiences pressure-like dull anterior midline chest pain with the cough but also states she'll occasionally have pain running down her back. Patient denies any fever or chills. She does report an episode of coughing up pinkish sputum a few days ago as well as some nausea and vomiting but this has since resolved. She reports occasional swelling in both ankles. She is followed by her artist relationship manager Dr. Del Valle as an outpatient. She reports her lung cancer was not amenable to surgery due to its proximity to her heart. She denies any cardiac problems. Patient does endorse some decreased appetite since she began the maintenance chemotherapy a week ago. At present, she is relatively comfortable and is not exhibiting signs of respiratory distress. In the ED, she had a chest x-ray revealing a large right pleural effusion that is at least partially loculated. She also had a CTA which was negative for pulmonary embolus and showed a large right effusion and right lung atelectasis. Review of Systems Except as stated in HPI: all other systems reviewed are Neg Past Family Social History Past Medical History Stage III non-small cell adenocarcinoma of the right lung diagnosed 04/08 status post concurrent radiation and chemotherapy now on maintenance chemotherapy of Cisplatin and Alimta Hypertension Anxiety Depression History of ovarian cancer, remote Past Surgical History Hysterectomy for removal of ovarian carcinoma 1989 Breast cysts removal Appendectomy Port placement 2 Lung biopsy Reported Medications Potassium Chloride ER (Potassium Chloride) 20 Meq Tab 40 Meq PO BID Folic Acid 0.4 Mg Tab 400 Mcg PO DAILY Hydromet Liq (Hydrocodone Bit/Homatropine Methylb) 5-1.5 Mg/5 Ml Syrp 7 Ml PO BID PRN Tramadol (Tramadol HCl) 50 Mg Tab 50 Mg PO Q6H PRN Sertraline (Sertraline HCl) 100 Mg Tab 100 Mg PO DAILY Metoprolol Succinate ER 24 HR (Metoprolol Succinate) 100 Mg Tab 150 Mg PO BID Hydrochlorothiazide 25 Mg Tab 25 Mg PO DAILY Buspirone (Buspirone HCl) 5 Mg Tab 5 Mg PO BID Amlodipine (Amlodipine Besylate) 5 Mg Tab 5 Mg PO DAILY Alprazolam 0.25 Mg Tab 0.25 Mg PO TID Allergies: Uncoded Allergies: Taxol/Taxotere (Adverse Reaction, Severe, Facial flushing and shortness of breath, 06/13/16) Active Ordered Medications Current Medications Medications (Trade) Dose Ordered Sig/Katia Route Start Time Stop Time Status Last Admin (NS Flush) 2 ml UNSCH PRN IVF 11/21/16 11:30 (Xanax) 0.25 mg TID PO 11/21/16 18:00 (Norvasc) 5 mg DAILY PO 11/22/16 09:00 (Buspar) 5 mg BID PO 11/21/16 21:00 (Hydrodiuril) 25 mg DAILY PO 11/22/16 09:00 (KCl) 40 meq BID PO 11/21/16 21:00 (Zoloft) 100 mg DAILY PO 11/22/16 09:00 (Toprol Xl) 150 mg BID PO 11/21/16 21:00 (NS Flush) 2 ml UNSCH PRN IV FLUSH 11/21/16 14:30 (NS Flush) 2 ml BID IV FLUSH 11/21/16 21:00 (Zofran Inj) 4 mg Q6H PRN IVP 11/21/16 14:30 (Narcan Inj) 0.4 mg UNSCH PRN IV PUSH 11/21/16 14:30 (Milk Of Magnesia Liq) 30 ml Q12H PRN PO 11/21/16 14:30 (Senokot) 17.2 mg Q12H PRN PO 11/21/16 14:30 (Dulcolax Supp) 10 mg DAILY PRN RECTAL 11/21/16 14:30 (Lactulose Liq) 30 ml DAILY PRN PO 11/21/16 14:30 ([place] 5-325 Mg) 1 tab Q4H PRN PO 11/21/16 14:30 Potassium Chloride 100 ml @ 50 mls/hr Q2H IV 11/21/16 14:30 11/21/16 18:29 (Hycodan Liq) 7 ml BID PRN PO 11/21/16 17:00 UNV Family History Mother, diabetes, CAD, from [place] Father, from lung cancer Aunt, ovarian cancer Social History Patient has a history of tobacco use of a pack per day for 30 years but quit 30 years ago. She denies any alcohol use or illicit drug use. She is lives with her who is blind. Physical Exam Vital Signs Vital Signs Date Time Temp Pulse Resp B/P (MAP) Pulse Ox O2 Delivery O2 Flow Rate FiO2 11/21/16 11:33 98 Nasal Cannula 3.00 11/21/16 11:33 99 Nasal Cannula 3.00 11/21/16 11:16 98.1 97 15 147/65 (92) 99 Nasal Cannula 3.00 11/21/16 10:50 97.7 101 13 103/59 (74) 96 Physical Exam GENERAL: This is a well-nourished, well-developed obese patient, in no apparent distress. Awake and alert. Able to speak sentences easily. SKIN: No rashes, ecchymoses or lesions. Cool and dry. HEAD: Atraumatic. Normocephalic. No temporal or scalp tenderness. EYES: Pupils equal round and reactive. Extraocular motions intact. No scleral icterus. No injection or drainage. ENT: Nose without bleeding, purulent drainage. Throat without erythema, tonsillar hypertrophy or exudate. Uvula midline. Airway patent. NECK: Trachea midline. No lymphadenopathy. Supple, nontender, no meningeal signs. CARDIOVASCULAR: Regular rate and rhythm without murmurs, gallops, or rubs. RESPIRATORY: Absent breath sounds on the right on the mid and lower lung tello with diminished breath sounds on the right in the upper lung field. No wheezes, rales, or rhonchi. GASTROINTESTINAL: Abdomen soft, non-tender, nondistended. No hepato-splenomegaly , or palpable masses. No guarding. MUSCULOSKELETAL: Extremities without cyanosis. Clubbing noted in the digits of both hands. (+) Trace bilateral lower extremity edema. No joint tenderness, effusion, or edema noted. No calf tenderness. NEUROLOGICAL: Awake and alert. Able to move all extremities spontaneously. Nonfocal. Normal speech. Laboratory Laboratory Tests Test 11/21/16 11:55 11/21/16 15:30 White Blood Count 4.2 Red Blood Count 2.52 Hemoglobin 8.5 Hematocrit 25.1 Mean Corpuscular Volume 99.5 Mean Corpuscular Hemoglobin 33.7 Mean Corpuscular Hemoglobin Concent 33.9 Red Cell Distribution Width 16.4 Platelet Count 140 Mean Platelet Volume 7.1 CBC Comment AUTO DIFF Differential Total Cells Counted 100 Neutrophils % (Manual) 61 Lymphocytes % 16 Monocytes % 22 Basophils % 1 Neutrophils # (Manual) 2.6 Differential Comment FINAL DIFF MANUAL Hypersegmented Polys 1+ Ovalocytes 1+ Prothrombin Time 12.0 Prothromb Time International Ratio 1.1 Activated Partial Thromboplast Time 29.4 Blood Urea Nitrogen 11 Creatinine 0.86 Random Glucose 132 Total Protein 7.7 Albumin 3.0 Calcium Level 9.3 Magnesium Level 1.3 Alkaline Phosphatase 64 Aspartate Amino Transf (AST/SGOT) 24 Alanine Aminotransferase (ALT/SGPT) 16 Total Bilirubin 0.6 Sodium Level 134 Potassium Level 3.2 Chloride Level 94 Carbon Dioxide Level 30.3 Anion Gap 10 Estimat Glomerular Filtration Rate 64 Lactic Acid Level 1.6 Total Creatine Kinase 111 Creatine Kinase MB 3.1 Troponin I 0.24 Date/Time Source Procedure Growth Status 11/21/16 11:55 Blood Peripheral Aerobic Blood Culture Pending Received 11/21/16 11:55 Blood Peripheral Anaerobic Blood Culture Pending Received Result Diagram: 11/21/16 1155 11/21/16 1155 Imaging Last Impressions Chest X-Ray 11/21/16 1124 Signed Impressions: Service Date/Time: Monday, November 21, 2016 12:11 - CONCLUSION: 1. Decrease in size of right lung mass since May 20 with residual abnormal soft tissue in the right paramediastinal region. There is also interval development of a large right pleural effusion that is at least partially loculated. Sam Mace MD CT Angiography 11/21/16 1124 Signed Impressions: Service Date/Time: Monday, November 21, 2016 14:17 - CONCLUSION: No pulmonary embolism. Large right effusion and right lung atelectasis. MD Marija Luis VTE Risk Assessment Caprini VTE Risk Assessment: Mod/High Risk (score >= 2) VTE Pharm Contraindication: IR procedure Caprini Risk Assessment Model Point Value = 1 Point Value = 2 Point Value = 3 Point Value = 5 Age 41-60 Minor surgery BMI > 25 kg/m2 Swollen legs Varicose veins or History of unexplained or recurrent spontaneous Oral contraceptives or hormone replacement Sepsis (< 1 month) Serious lung disease, including pneumonia (< 1 month) Abnormal pulmonary function Acute myocardial infarction Congestive heart failure (< 1 month) History of inflammatory bowel disease Medical patient at bed rest Age 61-74 Arthroscopic surgery Major open surgery (> 45 min) Laparoscopic surgery (> 45 min) Malignancy Confined to bed (> 72 hours) Immobilizing plaster cast Central venous access Age >= 75 History of VTE Family history of VTE Factor V Leiden Prothrombin [id number] Lupus anticoagulant Anticardiolipin antibodies Elevated serum homocysteine Heparin-induced thrombocytopenia Other congenital or acquired thrombophilia Stroke (< 1 month) Elective arthroplasty Hip, pelvis, or leg fracture Acute spinal cord injury (< 1 month) Prophylaxis Regimen Total Risk Factor Score Risk Level Prophylaxis Regimen 0-1 Low Early ambulation 2 Moderate Order ONE of the following: *Sequential Compression Device (SCD) *Heparin 5000 units SQ BID 3-4 Higher Order ONE of the following medications: *Heparin 5000 units SQ TID *Enoxaparin/Lovenox 40 mg SQ daily (WT < 150 kg, CrCl > 30 mL/min) *Enoxaparin/Lovenox 30 mg SQ daily (WT < 150 kg, CrCl > 10-29 mL/min) *Enoxaparin/Lovenox 30 mg SQ BID (WT < 150 kg, CrCl > 30 mL/min) AND/OR *Sequential Compression Device (SCD) 5 or more Highest Order ONE of the following medications: *Heparin 5000 units SQ TID (Preferred with Epidurals) *Enoxaparin/Lovenox 40 mg SQ daily (WT < 150 kg, CrCl > 30 mL/min) *Enoxaparin/Lovenox 30 mg SQ daily (WT < 150 kg, CrCl > 10-29 mL/min) *Enoxaparin/Lovenox 30 mg SQ BID (WT < 150 kg, CrCl > 30 mL/min) AND *Sequential Compression Device (SCD) Assessment and Plan Assessment and Plan 76-year-old female with past medical history significant for stage III non- small cell adenocarcinoma of the right lung that was diagnosed in March of this year treated with concurrent radiation and chemotherapy who is now on Cisplatin and Alimta under the care of Dr. Johnson who presents to [facility] ED with complaints of cough and shortness of breath 1 week. Cough and dyspnea secondary to large right sided pleural effusion - Chest x-ray personally reviewed showing large partially loculated right pleural effusion - CTA personally reviewed negative for PE but showing large right effusion and right lung atelectasis - Consult IR for thoracentesis - send specimen for fluid studies - Consult Pulmonology - Monitor respiratory status. Patient currently satting at 99% on 3 L nasal cannula - Continue supplemental oxygen - Monitor I's and O's Elevated troponin - Doubt ACS, likely due to demand ischemia - EKG personally reviewed showing sinus rhythm, heart rate 96, no acute ST changes noted - Continuous cardiac monitoring - Trend cardiac enzymes Stage III non-small cell adenocarcinoma of the right lung - Per report, not amenable to surgical intervention due to cardiac proximity - Status post concurrent radiation and chemotherapy now on maintenance therapy with Cisplatin and Alimta - Consult medical oncologist Dr. Johnson who follows as outpatient Hypertension - Resume patient's home dose of metoprolol 150 mg by mouth twice a day, hydrochlorothiazide 25 mg daily and amlodipine 5 mg daily - Monitor BP Hypomagnesemia Hypokalemia - IV repletion ordered - Resume patient's home dose of potassium 40 mEq by mouth BID - A.m. labs to monitor response Anemia - chronic - History of transfusions - No active bleeding, continue to monitor - Monitor CBC as indicated Depression Anxiety - Resume home antidepressant and anxiolytic DVT prophylaxis - Chemoprophylaxis contraindicated secondary to IR procedure - Bilateral SCD This note was transcribed by oz [Inez Sarmiento]. I, Dr. Daisy Barton personally performed the history, physical exam, and medical decision making; and confirmed the accuracy of the information in the transcribed note. Authenticated by Dr. Daisy Barton on 11/21/16 at 17:07. Discussed Condition With Patient, ED physician Physician Certification 2 Midnight Certification Type: Admission for Inpatient Services Order for Inpatient Services The services are ordered in accordance with Medicare regulations or non- Medicare payer requirements, as applicable. In the case of services not specified as inpatient-only, they are appropriately provided as inpatient services in accordance with the 2-midnight benchmark. Estimated LOS (days): 3 3 days is the estimated time the patient will need to remain in the hospital, assuming treatment plan goals are met and no additional complications. Post-Hospital Plan: Not yet determined Inez Sarmiento Nov 21, 2016 17:06 Daisy Barton MD Nov 21, 2016 17:07
[2016-11-21] MEDS: ALPRAZolam 0.25 MG TAB PO SCH (18:00)
[2016-11-21 19:00] VITALS: BP 126/79; PULSE 110; RESP 20; O2SAT 95
[2016-11-21 20:14] VITALS: BP 131/63; PULSE 116; RESP 20; TEMP 97.9; O2SAT 91
[2016-11-21] MEDS ORDERED: POTASSIUM CHLOR 20 MEQ PREMIX 100 ML ONE (21:08)
[2016-11-21] MEDS: busPIRone HCL 5 MG TAB PO SCH (21:26)
[2016-11-21] MEDS: METOPROLOL SUCCINATE 50 MG EXTENDED RELEASE TAB PO SCH (21:27)
[2016-11-21] MEDS: SODIUM CHLORIDE 0.9% FLUSH 10 ML FLUSH IV FLUSH SCH (21:27)
[2016-11-21] MEDS: POTASSIUM CHLORIDE 20 MEQ CONTROLLED RELEASE TAB PO SCH (21:27)
[2016-11-21] MEDS: POTASSIUM CHLOR 20 MEQ PREMIX 100 ML IV SCH (21:28)
[2016-11-22] VITALS (10 sets, daily range): BP systolic 114–144; BP diastolic 10–86; PULSE 99–125; RESP 18–20; TEMP 97–98.3; O2SAT 92–98
[2016-11-22] MEDS ORDERED: POTASSIUM CHLOR 20 MEQ PREMIX 100 ML ONE (00:16)
[2016-11-22] MEDS: HYDROcodone 5 MG/HOMATROPINE 1.5 MG SYRUP 5 ML CUP PO PRN ×3 (00:21→23:06)
[2016-11-22] MEDS: POTASSIUM CHLOR 20 MEQ PREMIX 100 ML IV SCH (00:21)
--- NOTE | 2016-11-22 07:52 | MB ---
cc: TIMI BARTON MD, ABDUL J. M.D. DATE OF CONSULTATION: 11/21/2016 REASON FOR CONSULTATION Consult requested by Dr. Barton for evaluation of non-small cell lung cancer. HISTORY OF PRESENT ILLNESS Fanny is a pleasant 76-year-old female. She has a history of non-small cell lung cancer, adenocarcinoma stage III, which was diagnosed in March of this year. In February of this year she presented with cough and shortness of breath. A chest x-ray showed a 7.4 cm right upper lobe lung mass. Subsequently she had a CAT scan of the chest which confirmed a 7.7 cm right suprahilar mass invading the mediastinum. There was 1.6 cm subcarinal lymphadenopathy noted. She underwent bronchoscopy and transbronchial biopsy of the right main stem bronchus and pathology report showed moderately differentiated adenocarcinoma. She had a PET scan which showed increased uptake in the right upper lobe lung mass, right paratracheal and subcarinal lymph nodes and gastric cardia and pylorus. She went to the [facility] to get a second opinion and they have recommended combined concurrent radiation and chemotherapy. The patient elected to have treatment locally. On May 16 she was started on radiation and weekly carboplatin and Taxol chemotherapy; however, the patient was found to have an allergic reaction to Taxol. The Taxol was switched over to Taxotere and again the patient had an allergic reaction with Taxotere as well. Subsequently she developed a reaction from carboplatin also. She was then treated with cisplatin chemotherapy along with radiation which she completed on July 07. She had a restaging CAT scan the chest which showed that the right upper lobe lung mass has decreased in size to 6 cm and there was no mediastinal lymphadenopathy noted. She was treated with consolidative cisplatin and Alimta chemotherapy for 4 cycles. The repeat PET scan showed an excellent response, however, there was still residual malignancy noted in the right upper lobe lung mass. We had discussed two options. One was observation and watch and wait for progression. The second option was maintenance chemotherapy with Alimta. The patient elected for maintenance Alimta chemotherapy which she started last week Monday. The patient stated that she did well with the Alimta chemotherapy but over the weekend she was having severe difficulty breathing. Last night she was tachycardic with a heart rate of 140. She also had a low-grade fever. The patient called our office this morning with these symptoms. She was advised come to the emergency room for further evaluation. In the emergency room the patient underwent CT angiogram of the chest which did not show any pulmonary embolism. But it showed that the patient has a large right pleural effusion. The patient is now admitted to the hospital. I have been asked to see her for further evaluation. The patient is in the emergency room. Her son is present at the bedside. The patient states that her breathing has somewhat improved since she is in the hospital. Her heart rate was 110 when she came in. She denies any chest pain with that. She is complaining of extreme weakness, tiredness and fatigue. She denies any nausea or vomiting. She denies any constipation or diarrhea. The rest of the review of systems is negative. PAST MEDICAL HISTORY 1. Non-small cell lung cancer, adenocarcinoma. 2. Anxiety disorder. 3. Arthritis. 4. Depression. 5. History of ovarian cancer September 1988 with surgery followed by chemotherapy. 6. Hypertension. PAST SURGICAL HISTORY 1. Cyst removed from the left breast. 2. Right main stem bronchus biopsy. 3. Colonoscopy. 4. Ovarian tumor removal in 1988. 5. Kpyian-S-Ynjq placement. ALLERGIES 1. TAXOTERE. 2. TAXOL. 3. CARBOPLATIN. MEDICATIONS Please see EMR. FAMILY HISTORY The patient's mother from [place]. Father from lung cancer. The patient has three brothers; one from [place], one bladder cancer. The patient has two sisters. She does not have any biological children. SOCIAL HISTORY The patient is . 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 She used to smoke cigarettes, one pack a day for 30 years, quit about 30 years ago. She does not drink alcohol. PHYSICAL EXAMINATION GENERAL: A well-developed, well-nourished white female in respiratory distress. VITAL SIGNS: Temperature 98.1, heart rate 110, blood pressure 126/79. O2 saturation 95% on 3 liters nasal cannula. HEENT: PERRLA. EOMI. Anicteric. No oral lesions noted. NECK: No lymphadenopathy noted. LUNGS: Decreased breath sounds on the right side. The left side is clear. HEART: Heart is tachycardic with no murmur. ABDOMEN: Soft, nontender. EXTREMITIES: No pedal edema. NEUROLOGIC: Awake, alert, oriented x3. SKIN: No significant lesions are noted. ASSESSMENT 1. Non-small cell lung cancer, adenocarcinoma stage III, status post combined concurrent radiation chemotherapy followed by consolidative chemotherapy. The restaging PET scan showed that she still has residual disease and now she is on Alimta maintenance chemotherapy. 2. Cough, shortness of breath and tachycardia. This is due to a large right pleural effusion. The etiology of the pleural effusion could be benign or malignant. 3. Hemoptysis. PLAN I have reviewed her available records and I had an extensive discussion with the patient and her son at the bedside regarding her current symptoms of severe shortness of breath, hemoptysis, cough and tachycardia. This I believe is all due to the large right pleural effusion. I will consult the interventional radiologist for ultrasound-guided diagnostic and therapeutic right thoracentesis. I will ask the radiologist to send the pleural fluid for cell count, chemistry, culture and cytology. The patient has hemoptysis. She may require bronchoscopy. The patient's fiberglass dowel drawing operator is Dr. Adolfo Del Valle and I will ask him to see her while she is in the hospital for further evaluation of the cough with hemoptysis and shortness of breath. The patient has asked several questions and these were answered to her satisfaction. Thank you for asking my opinion. Roman Johnson MD /BT /11:04 PM /7:28 AM BARAK
--- NOTE | 2016-11-22 08:44 | EKG ---
Date Performed: 11/21/2016 Time Performed: 11:43:04 PTAGE: 76 years EKG: Sinus rhythm NORMAL ECG NO PREVIOUS TRACING DOCTOR: Radha Ibarra Interpretating Date/Time 11/22/2016 08:42:30
[2016-11-22] MEDS: SODIUM CHLORIDE 0.9% FLUSH 10 ML FLUSH IV FLUSH SCH ×2 (09:00→23:06)
[2016-11-22] MEDS: METOPROLOL SUCCINATE 50 MG EXTENDED RELEASE TAB PO SCH ×3 (09:00→23:04)
--- NOTE | 2016-11-22 09:14 | PD.ONC.PN ---
Subjective Subjective Remarks Afebrile overnight. Patient resting in bed. Reports shortness of breath with movement. Wanting to know when she will have her thoracentesis. Denies further hemoptysis. Objective Data Date Time Temp Pulse Resp B/P (MAP) Pulse Ox O2 Delivery O2 Flow Rate FiO2 11/22/16 08:06 92 Nasal Cannula 3.00 11/22/16 07:18 97.4 109 20 130/75 (93) 95 11/22/16 05:08 3.00 11/22/16 03:33 98.2 107 18 120/71 (87) 96 11/22/16 00:02 98.0 116 20 134/71 (92) 96 11/21/16 20:16 11/21/16 20:14 97.9 116 20 131/63 (85) 91 11/21/16 19:00 110 20 126/79 (95) 95 Nasal Cannula 3.00 11/21/16 11:33 99 Nasal Cannula 3.00 11/21/16 11:33 98 Nasal Cannula 3.00 11/21/16 11:33 99 Nasal Cannula 3.00 11/21/16 11:16 98.1 97 15 147/65 (92) 99 Nasal Cannula 3.00 11/21/16 10:50 97.7 101 13 103/59 (74) 96 Result Diagram: 11/21/16 1155 11/21/16 1155 Laboratory Results Laboratory Tests Test 11/21/16 11:55 11/21/16 15:30 11/22/16 00:21 White Blood Count 4.2 TH/MM3 Red Blood Count 2.52 MIL/MM3 Hemoglobin 8.5 GM/DL Hematocrit 25.1 % Mean Corpuscular Volume 99.5 FL Mean Corpuscular Hemoglobin 33.7 PG Mean Corpuscular Hemoglobin Concent 33.9 % Red Cell Distribution Width 16.4 % Platelet Count 140 TH/MM3 Mean Platelet Volume 7.1 FL CBC Comment AUTO DIFF Differential Total Cells Counted 100 Neutrophils % (Manual) 61 % Lymphocytes % 16 % Monocytes % 22 % Basophils % 1 % Neutrophils # (Manual) 2.6 TH/MM3 Differential Comment FINAL DIFF MANUAL Hypersegmented Polys 1+ Ovalocytes 1+ Prothrombin Time 12.0 SEC Prothromb Time International Ratio 1.1 RATIO Activated Partial Thromboplast Time 29.4 SEC Blood Urea Nitrogen 11 MG/DL Creatinine 0.86 MG/DL Random Glucose 132 MG/DL Total Protein 7.7 GM/DL Albumin 3.0 GM/DL Calcium Level 9.3 MG/DL Magnesium Level 1.3 MG/DL Alkaline Phosphatase 64 U/L Aspartate Amino Transf (AST/SGOT) 24 U/L Alanine Aminotransferase (ALT/SGPT) 16 U/L Total Bilirubin 0.6 MG/DL Sodium Level 134 MEQ/L Potassium Level 3.2 MEQ/L Chloride Level 94 MEQ/L Carbon Dioxide Level 30.3 MEQ/L Anion Gap 10 MEQ/L Estimat Glomerular Filtration Rate 64 ML/MIN Lactic Acid Level 1.6 mmol/L Total Creatine Kinase 111 U/L 131 U/L Creatine Kinase MB 3.1 NG/ML Troponin I 0.24 NG/ML 0.33 NG/ML Urine Color YELLOW Urine Turbidity HAZY Urine pH 6.0 Urine Specific [place] 1.017 Urine Protein TRACE mg/dL Urine Glucose (UA) NEG mg/dL Urine Ketones NEG mg/dL Urine Occult Blood TRACE Urine Nitrite NEG Urine Bilirubin NEG Urine Urobilinogen LESS THAN 2.0 MG/DL Urine Leukocyte Esterase SMALL Urine RBC 3 /hpf Urine WBC 6 /hpf Urine Squamous Epithelial Cells 1 /hpf Urine Transitional Epithelial Cells 1 /hpf Urine Bacteria RARE /hpf Urine Hyaline Casts 7 /lpf Urine Mucus FEW /lpf Microscopic Urinalysis Comment CULT NOT INDICATED B-Type Natriuretic Peptide 103 PG/ML Culture Results Microbiology Date/Time Source Procedure Growth Status 11/21/16 11:55 Blood Peripheral Aerobic Blood Culture Pending Received 11/21/16 11:55 Blood Peripheral Anaerobic Blood Culture Pending Received 11/21/16 11:50 Blood Peripheral Aerobic Blood Culture Pending Received 11/21/16 11:50 Blood Peripheral Anaerobic Blood Culture Pending Received Imaging Studies Last 24 hours Impressions Chest X-Ray 11/21/161123 Signed Impressions: Service Date/Time: Monday, November 21, 2016 12:11 - CONCLUSION: 1. Decrease in size of right lung mass since May 20 with residual abnormal soft tissue in the right paramediastinal region. There is also interval development of a large right pleural effusion that is at least partially loculated. Sam Mace MD CT Angiography [id number]/21/161123 Signed Impressions: Service Date/Time: Monday, November 21, 2016 14:17 - CONCLUSION: No pulmonary embolism. Large right effusion and right lung atelectasis. Lanre Pearce MD Administered Medications Medications (Trade) Dose Ordered Sig/Katia Route PRN Reason Start Time Stop Time Status Last Admin Dose Admin Alprazolam (Xanax) 0.25 mg TID PO 11/21/16 18:00 11/21/16 18:00 Buspirone HCl (Buspar) 5 mg BID PO 11/21/16 21:00 11/21/16 21:26 Potassium Chloride (KCl) 40 meq BID PO 11/21/16 21:00 11/21/16 21:27 Metoprolol Succinate (Toprol Xl) 150 mg BID PO 11/21/16 21:00 11/21/16 21:27 Sodium Chloride (NS Flush) 2 ml BID IV FLUSH 11/21/16 21:00 11/21/16 21:27 Hydrocodone Bit/ Homatropine Methylb (Hycodan Liq) 7 ml BID PRN PO COUGH 11/21/16 17:00 11/22/16 00:21 Objective Remarks GENERAL: Pleasant elderly female sitting up in bed in [facility]. SKIN: Warm and dry. HEAD: Normocephalic. EYES: No injection or drainage. NECK: Supple, trachea midline. CARDIOVASCULAR: Regular rate and rhythm RESPIRATORY: diminished at right base. anterior tello clear. On 3L O2 via NC GASTROINTESTINAL: Abdomen soft, non-tender, nondistended. EXTREMITIES: No cyanosis. NEUROLOGICAL: awake and alert, normal speech. moving all extremities. Assessment/Plan Problem List: (1) Pleural effusion ICD Codes: J90 - Pleural effusion, not elsewhere classified Status: Acute Plan: 11/22: await thoracentesis. send pleural fluid for cell count, electrolytes, culture and cytology --presented with cough, shortness of breath and tachycardia. --due to a large right pleural effusion. --etiology of the pleural effusion could be benign or malignant. --pulmonology following. (2) History of lung cancer ICD Codes: Z85.118 - Personal history of other malignant neoplasm of bronchus and lung Status: Acute Plan: --on maintenance Alimta outpatient History --history of non-small cell lung cancer, squamous cell carcinoma stage III, diagnosed in March 2016. --went to the [facility] to get a second opinion and they have recommended combined concurrent radiation and chemotherapy. The patient elected to have treatment locally. --May 16 started on radiation and weekly carboplatin and Taxol chemotherapy ; however, the patient was found to have an allergic reaction to Taxol. The Taxol was switched over to Taxotere and again the patient had an allergic reaction with Taxotere as well. --Subsequently she developed a reaction from carboplatin. She was treated with cisplatin chemotherapy along with radiation which she completed on July 07. --restaging CT chest showed right upper lobe lung mass has decreased in size to 6 cm and there was no mediastinal lymphadenopathy noted. --was treated with consolidative cisplatin and Alimta chemotherapy for 4 cycles. --repeat PET scan showed an excellent response, however, there was still residual malignancy noted in the right upper lobe lung mass. --started on maintenance Alimta chemotherapy last week Monday. Assessment 76y/o female with non-small cell lung cancer. h/o Non-small cell lung cancer, adenocarcinoma. Anxiety disorder. Arthritis. Depression. History of ovarian cancer September 1988 with surgery followed by chemotherapy. Hypertension. Attending Statement less SOB after the procedure S/P thoracentesis, One liter of fluid removed. Sent for analysis. Will follow. Geneva Alba Nov 22, 2016 09:14 Dayne Johnson MD Nov 22, 2016 23:28
[2016-11-22 10:41] LABS: HEMATOCRIT 22.4 % (35.0-46.0); MEAN CELL VOLUME 99.2 FL (80.0-100.0); MEAN CORPUSCULAR HEMOGLOBIN 33.7 PG (27.0-34.0); PLATELET COUNT 117 TH/MM3 (150-450); RED BLOOD COUNT 2.26 MIL/MM3 (4.00-5.30); RED CELL DISTRIBUTION WIDTH 16.2 % (11.6-17.2); WHITE BLOOD COUNT 3.5 TH/MM3 (4.0-11.0)
[2016-11-22 10:45] LABS: HEMO FLAGS AUTO DIFF
[2016-11-22] MEDS: busPIRone HCL 5 MG TAB PO SCH ×2 (10:59→21:00)
[2016-11-22] MEDS: ALPRAZolam 0.25 MG TAB PO SCH ×3 (10:59→18:25)
[2016-11-22] MEDS: HYDROCHLOROTHIAZIDE 25 MG TAB PO SCH (11:01)
[2016-11-22] MEDS: POTASSIUM CHLORIDE 20 MEQ CONTROLLED RELEASE TAB PO SCH ×2 (11:01→23:05)
[2016-11-22] MEDS: SERTRALINE HCL 100 MG TAB PO SCH (11:02)
[2016-11-22] MEDS: amLODIPine BESYLATE 5 MG TAB PO SCH (11:04)
[2016-11-22 11:11] LABS: BICARBONATE 32.2 MEQ/L (21.0-32.0); MAGNESIUM 1.8 MG/DL (1.5-2.5); POTASSIUM 3.5 MEQ/L (3.5-5.1)
[2016-11-22 11:31] LABS: BANDS 1 % (0-6); NEUTROPHIL # MANUAL DIFF 1.9 TH/MM3 (1.8-7.7); POLYS (SEG NEUTROPHILS) 54 % (16-70); WBC DIFF SAMPLE 100
[2016-11-22 11:32] LABS: PLATELET ESTIMATE SMEAR LOW (NORMAL); PLATELET MORPHOLOGY NORMAL (NORMAL); SCAN/DIFF FINAL DIFF MANUAL
[2016-11-22] MEDS ORDERED: LIDOCAINE HCL 1% PF 30 ML VIAL ONE (12:01)
--- NOTE | 2016-11-22 12:25 | RADRPT ---
EXAM DATE/TIME: 11/22/2016 12:05 [facility] COMPARISON: CHEST SINGLE AP, November 21, 2016, 12:11. INDICATIONS : Status post right thoracentesis. Patient states no chest complaints. MEDICAL HISTORY : Cardiovascular disease. Hypertension. ovarian cancer SURGICAL HISTORY : Hysterectomy. ENCOUNTER: Initial ACUITY: 2 days PAIN SCORE: 0/10 LOCATION: Right chest FINDINGS: A single frontal expiratory view of the chest was performed. Loculated right-sided pleural effusion a ppears unchanged. Right-sided paramediastinal mass again seen. The left sided Igfzva-y-Bjoe catheter unchanged. Left lung remains clear. CONCLUSION: Stable chest. No pneumothorax. Loculated right pleural effusion and right lung mass are stable. Preet Gillespie MD on November 22, 2016 at 12:22 Board Certified Radiologist. This report was verified electronically.
[2016-11-22 13:20] LABS: TOTAL PROTEIN,PLEURAL FLUID 4.4 GM/DL
--- NOTE | 2016-11-22 13:29 | RADRPT ---
EXAM DATE/TIME: 11/22/2016 11:28 [facility] COMPARISON: No previous studies available for comparison. INDICATIONS : Right pleural effusion. MEDICAL HISTORY : Hypertension. Arthritis. Anxiety. Ovarian cancer. Chemotherapy. SURGICAL HISTORY : Appendectomy. Hysterectomy. Left breast biopsy. Left chest port. ENCOUNTER: Initial ACUITY: 1 day PAIN SCORE: 3/10 LOCATION: Right chest FLUID: Total volume of 1000 cc of clear, red fluid was removed. Fluid was sent to lab for ordered studies. TECHNIQUE: 1. Ultrasound guidance for thoracentesis. 2. Thoracentesis. The risks, benefits, and alternatives to ultrasound guided thoracentesis were explained to the patien t in lay simple terms, including the risk of bleeding and infection. Written and verbal informed con sent was obtained. Appropriate area for thoracentesis was marked under ultrasound guidance with the patient in the uprig ht position. Overlying skin was prepped and draped in the usual sterile fashion and with local anest hetic, a dermatotomy was made with an 11 blade scalpel. A 6 [place] thoracentesis catheter was placed in the pleural space and fluid was removed. Catheter was then removed and a sterile dressing applie d. There were no immediate complications. The patient tolerated the procedure well and the left the ultrasound suite in stable condition. Chest radiograph is to be obtained. CONCLUSION: Uncomplicated ultrasound guided thoracentesis. Prabhakar Nguyễn MD on November 22, 2016 at 13:27 Board Certified Radiologist. This report was verified electronically.
[2016-11-22 13:40] LABS: PLEURAL FLUID LYMPHS 57 %
--- NOTE | 2016-11-22 17:30 | HHI.PR ---
Subjective Remarks Patient reports feeling better after the thoracentesis. Breathing more comfortable. Still have chronic cough. Seen by Pulmonology and started on Ceftin. Objective Vitals Vital Signs Date Time Temp Pulse Resp B/P (MAP) Pulse Ox O2 Delivery O2 Flow Rate FiO2 11/22/16 15:59 98.3 119 20 132/62 (85) 98 11/22/16 12:35 99 18 115/10 (45) 98 11/22/16 12:20 98.0 111 18 114/71 (85) 98 11/22/16 11:30 98.0 109 18 144/86 (105) 92 11/22/16 08:06 92 Nasal Cannula 3.00 11/22/16 07:18 97.4 109 20 130/75 (93) 95 11/22/16 05:08 3.00 11/22/16 03:33 98.2 107 18 120/71 (87) 96 11/22/16 00:02 98.0 116 20 134/71 (92) 96 11/21/16 20:16 11/21/16 20:14 97.9 116 20 131/63 (85) 91 11/21/16 19:00 110 20 126/79 (95) 95 Nasal Cannula 3.00 I/O 11/21/16 11/21/16 11/21/16 11/22/16 11/22/16 11/22/16 07:00 15:00 23:00 07:00 15:00 23:00 Intake Total 500 ml 100 ml Balance 500 ml 100 ml Intake IV Total 500 ml 100 ml Result Diagram: 11/22/16 0935 11/22/16 0935 Imaging Last Impressions Thoracentesis Ultrasound 11/22/16 0000 Signed Impressions: Service Date/Time: Tuesday, November 22, 2016 11:28 - CONCLUSION: Uncomplicated ultrasound guided thoracentesis. Prabhakar Nguyễn MD Chest X-Ray 11/22/16 0000 Signed Impressions: Service Date/Time: Tuesday, November 22, 2016 12:05 - CONCLUSION: Stable chest. No pneumothorax. Loculated right pleural effusion and right lung mass are stable. Preet Gillespie MD CT Angiography 11/21/16 1124 Signed Impressions: Service Date/Time: Monday, November 21, 2016 14:17 - CONCLUSION: No pulmonary embolism. Large right effusion and right lung atelectasis. Lanre Pearce MD Objective Remarks GENERAL: Elderly female, no acute distress. CARDIOVASCULAR: Regular rate and rhythm. RESPIRATORY: No accessory muscle use. Left lung clear. Right side diminished at the base. GASTROINTESTINAL: Abdomen soft, non-tender, nondistended. MUSCULOSKELETAL: Extremities without clubbing, cyanosis, or edema. No obvious deformities. NEUROLOGICAL: Awake and alert. Normal speech. PSYCHIATRIC: Appropriate mood and affect; insight and judgment normal. A/P Assessment and Plan 76-year-old female with past medical history significant for stage III non- small cell adenocarcinoma of the right lung that was diagnosed in March of this year treated with concurrent radiation and chemotherapy who is now on Cisplatin and Alimta under the care of Dr. Johnson who presents to [facility] ED with complaints of cough and shortness of breath 1 week. Cough and dyspnea secondary to large right sided pleural effusion - Chest x-ray personally reviewed showing large partially loculated right pleural effusion - CTA personally reviewed negative for PE but showing large right effusion and right lung atelectasis - S/P thoracentesis, 1 L removed. Fluid sent for studies - Seen by Pulmonology and started on Ceftin. Patient will be monitored overnight and discharge in the morning to follow up outpatient with her Manager Document Elevated troponin - Doubt ACS, likely due to demand ischemia from pleural effusion. Troponin remained flat. - EKG personally reviewed showing sinus rhythm, heart rate 96, no acute ST changes noted Stage III non-small cell adenocarcinoma of the right lung - Per report, not amenable to surgical intervention due to cardiac proximity - Status post concurrent radiation and chemotherapy now on maintenance therapy with Cisplatin and Alimta - Medical oncologist Dr. Johnson following. Hypertension - Continue home dose of metoprolol 150 mg by mouth twice a day, hydrochlorothiazide 25 mg daily and amlodipine 5 mg daily - Monitor BP Hypomagnesemia Hypokalemia -S/P replacement. - A.m. labs to monitor response Anemia - chronic - History of transfusions - No active bleeding, continue to monitor - Monitor CBC and transfused as indicated. Depression Anxiety - Resume home antidepressant and anxiolytic DVT prophylaxis - Bilateral SCD Discharge Planning DC in AM if remain stable. F/U CBC Daisy Barton MD Nov 22, 2016 17:30
--- NOTE | 2016-11-22 17:34 | MB ---
cc: HSU IRELAND M.D. DATE OF CONSULTATION 11/22/2016 REASON FOR CONSULTATION Right pleural effusion. HISTORY OF PRESENT ILLNESS The patient is a 76-year-old female with known history of [id number] lung cancer, namely an adenocarcinoma for which she had radiation and chemotherapy, originally 7.4 cm right upper lung, initial diagnosis in February of this year. The patient did respond well to therapy however, yesterday complained of temperature elevation, shortness of breath comes to the emergency room. CT angiography without pulmonary embolism. However, large right pleural effusion is noted. The patient underwent a right thoracentesis while in the emergency room and her shortness of breath actually improved. PAST MEDICAL HISTORY Her past medical history: 1. Adenocarcinoma of the lung as discussed above. 2. History of ovarian cancer in . 3. Anxiety, depression. 4. Degenerative joint disease. 5. Mood disorder. 6. Had a bronchoscopy and lung biopsy in the past. 7. Previous colonoscopy. 8. Removal of ovarian tumor in . 9. Has an Rhroer-B-Qbok in place. ALLERGIES CARBOPLATIN AND TAXOL. TAXOTERE. MEDICATIONS Kindly review MAR for same. FAMILY HISTORY Noncontributory. SOCIAL HISTORY Does not smoke, does not drink. Used to smoke for over 30 years, however has not smoked for 30 years as well. Does not use drugs. Does not drink alcohol. REVIEW OF SYSTEMS 12-point review of systems as per HPI and past history otherwise negative. PHYSICAL EXAMINATION GENERAL: On exam the patient is alert. VITAL SIGNS: Temperature 98 degrees Fahrenheit, pulse 90, respiratory rate 18, blood pressure 130/70. O2 sat 95% on O2 via nasal cannula at 3 liters per minute. HEENT: Exam unremarkable. Eyes without icterus. NECK: Without adenopathy or thyroid enlargement. CHEST: Decreased breath sounds right base. CARDIOVASCULAR: Cardiac exam PMI not appreciated. S1-S2 audible. No murmur or rub. ABDOMEN: Lax. Bowel sounds audible. EXTREMITIES: No clubbing, cyanosis or edema. IMPRESSION 1. Adenocarcinoma of the lung status post radiation, chemotherapy. 2. Large right pleural effusion post thoracentesis doing well. PLAN The patient will be maintained on oxygen therapy as needed. She did have minor hemoptysis which is related to underlying tracheobronchitis or her known malignancy. Empiric antibiotic therapy would be appropriate. We will place her on oral Ceftin at present. If stable the patient may be discharged and followed as an outpatient. She had seen Dr. Del Valle in the past and she may follow up her care with him post discharge as well. I do thank you for asking me to partake in Mrs. Travis's care. Shu Ireland MD WWW/DANAE /4:14 PM /5:16 PM
[2016-11-22] MEDS: CEFUROXIME AXETIL 500 MG TAB PO SCH (23:05)
[2016-11-23] VITALS (12 sets, daily range): BP systolic 97–128; BP diastolic 64–82; PULSE 87–129; RESP 16–20; TEMP 96.8–98; O2SAT 94–100
[2016-11-23 08:03] LABS: AUTOMATED NEUTROPHIL # 1.7 TH/MM3 (1.8-7.7); BASOPHIL % 0.2 % (0.0-2.0); EOSINOPHIL % 1.3 % (0.0-4.0); HEMATOCRIT 21.3 % (35.0-46.0); LYMPH % 23.1 % (9.0-44.0); LYMPHOCYTE # 0.8 TH/MM3 (1.0-4.8); MEAN CELL VOLUME 99.8 FL (80.0-100.0); MEAN CORPUSCULAR HEMOGLOBIN 34.7 PG (27.0-34.0); MEAN CORPUSCULAR HGB CONC 34.7 % (32.0-36.0); MONO % 24.7 % (0.0-8.0); NEUT % 50.7 % (16.0-70.0); PLATELET COUNT 104 TH/MM3 (150-450); RED BLOOD COUNT 2.13 MIL/MM3 (4.00-5.30); RED CELL DISTRIBUTION WIDTH 16.2 % (11.6-17.2); WHITE BLOOD COUNT 3.4 TH/MM3 (4.0-11.0)
[2016-11-23 08:08] LABS: HEMO FLAGS AUTO DIFF
[2016-11-23 08:18] LABS: ALT (GPT) 16 U/L (10-53); ANION GAP 5 MEQ/L (5-15); AST (GOT) 22 U/L (15-37); BLOOD UREA NITROGEN 9 MG/DL (7-18); CHLORIDE 99 MEQ/L (98-107); GLOMERULAR FILTRATION RATE 97 ML/MIN (>89); POTASSIUM 3.6 MEQ/L (3.5-5.1); SODIUM (NA) 137 MEQ/L (136-145)
[2016-11-23 08:31] LABS: ALKALINE PHOSPHATASE 53 U/L (45-117); TOTAL BILIRUBIN ADULT 0.3 MG/DL (0.2-1.0)
[2016-11-23] MEDS: busPIRone HCL 5 MG TAB PO SCH (09:33)
[2016-11-23] MEDS: amLODIPine BESYLATE 5 MG TAB PO SCH (09:33)
[2016-11-23] MEDS: SERTRALINE HCL 100 MG TAB PO SCH (09:33)
[2016-11-23] MEDS: ALPRAZolam 0.25 MG TAB PO SCH ×3 (09:33→16:50)
[2016-11-23] MEDS: METOPROLOL SUCCINATE 50 MG EXTENDED RELEASE TAB PO SCH (09:33)
[2016-11-23] MEDS: CEFUROXIME AXETIL 500 MG TAB PO SCH (09:33)
[2016-11-23] MEDS: POTASSIUM CHLORIDE 20 MEQ CONTROLLED RELEASE TAB PO SCH (09:34)
[2016-11-23] MEDS: HYDROCHLOROTHIAZIDE 25 MG TAB PO SCH (09:34)
[2016-11-23] MEDS: SODIUM CHLORIDE 0.9% FLUSH 10 ML FLUSH IV FLUSH SCH (09:35)
[2016-11-23] MEDS ORDERED: SODIUM CHLOR 0.9% 250 ML INJ 250 ML IV ONE (09:45)
[2016-11-23] MEDS ORDERED: CEFU1TAB20 PO (09:46)
--- NOTE | 2016-11-23 09:47 | HHI.DS ---
Discharge Summary Admission Date Nov 21, 2016 at 14:21 Discharge Date: Nov 23, 2016 Admitting Diagnosis large right pleural effusion, elevated troponin (1) Anemia ICD Code: D64.9 - Anemia, unspecified (2) Lung cancer ICD Code: C34.90 - Malignant neoplasm of unspecified part of unspecified bronchus or lung Status: Acute (3) Pleural effusion ICD Code: J90 - Pleural effusion, not elsewhere classified Status: Acute (4) Dyspnea ICD Code: R06.00 - Dyspnea, unspecified Status: Acute Procedures Thoracentesis Brief History - From Admission This is a 76-year-old female with past medical history significant for 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 Johnson who presents to [facility] ED with complaints of cough and shortness of breath 1 week. Patient states that she began receiving maintenance chemotherapy last Monday and since beginning that treatment has noted increasing cough. Patient states that when she coughs she gets short of breath. She also endorses shortness of breath with minimal exertion. She also occasionally experiences pressure-like dull anterior midline chest pain with the cough but also states she'll occasionally have pain running down her back. Patient denies any fever or chills. She does report an episode of coughing up pinkish sputum a few days ago as well as some nausea and vomiting but this has since resolved. She reports occasional swelling in both ankles. She is followed by her seismic engineer Dr. Del Valle as an outpatient. She reports her lung cancer was not amenable to surgery due to its proximity to her heart. She denies any cardiac problems. Patient does endorse some decreased appetite since she began the maintenance chemotherapy a week ago. At present, she is relatively comfortable and is not exhibiting signs of respiratory distress. In the ED, she had a chest x-ray revealing a large right pleural effusion that is at least partially loculated. She also had a CTA which was negative for pulmonary embolus and showed a large right effusion and right lung atelectasis. CBC/BMP: 11/23/16 0708 11/23/16 0708 Significant Findings Laboratory Tests Test 11/21/16 11:55 11/21/16 15:30 11/22/16 00:21 11/22/16 09:35 Red Blood Count 2.52 MIL/MM3 (4.00-5.30) 2.26 MIL/MM3 (4.00-5.30) Hemoglobin 8.5 GM/DL (11.6-15.3) 7.6 GM/DL (11.6-15.3) Hematocrit 25.1 % (35.0-46.0) 22.4 % (35.0-46.0) Platelet Count 140 TH/MM3 (150-450) 117 TH/MM3 (150-450) Monocytes % 22 % (0-8) 20 % (0-8) Hypersegmented Polys 1+ (NORMAL) Ovalocytes 1+ (NORMAL) Prothrombin Time 12.0 SEC (9.8-11.6) Random Glucose 132 MG/DL (74-106) 119 MG/DL (74-106) Albumin 3.0 GM/DL (3.4-5.0) Magnesium Level 1.3 MG/DL (1.5-2.5) Sodium Level 134 MEQ/L (136-145) Potassium Level 3.2 MEQ/L (3.5-5.1) Chloride Level 94 MEQ/L (98-107) Estimat Glomerular Filtration Rate 64 ML/MIN (>89) Troponin I 0.24 NG/ML (0.02-0.05) 0.33 NG/ML (0.02-0.05) 0.33 NG/ML (0.02-0.05) Urine Turbidity HAZY (CLEAR) Urine Occult Blood TRACE (NEG) Urine Leukocyte Esterase SMALL (NEG) Urine WBC 6 /hpf (0-5) Urine Bacteria RARE /hpf (NONE) Urine Mucus FEW /lpf (OCC) B-Type Natriuretic Peptide 103 PG/ML (0-100) White Blood Count 3.5 TH/MM3 (4.0-11.0) Platelet Estimate LOW (NORMAL) Carbon Dioxide Level 32.2 MEQ/L (21.0-32.0) Test 11/22/16 11:55 11/23/16 07:08 Pleural Fluid WBC 380 /MM3 (0-10) Pleural Fluid RBC 19789 /MM3 (0-0) White Blood Count 3.4 TH/MM3 (4.0-11.0) Red Blood Count 2.13 MIL/MM3 (4.00-5.30) Hemoglobin 7.4 GM/DL (11.6-15.3) Hematocrit 21.3 % (35.0-46.0) Mean Corpuscular Hemoglobin 34.7 PG (27.0-34.0) Platelet Count 104 TH/MM3 (150-450) Monocytes (%) (Auto) 24.7 % (0.0-8.0) Neutrophils # (Auto) 1.7 TH/MM3 (1.8-7.7) Lymphocytes # (Auto) 0.8 TH/MM3 (1.0-4.8) Random Glucose 120 MG/DL (74-106) Albumin 2.5 GM/DL (3.4-5.0) Carbon Dioxide Level 33.0 MEQ/L (21.0-32.0) Imaging Last Impressions Thoracentesis Ultrasound 11/22/16 0000 Signed Impressions: Service Date/Time: Tuesday, November 22, 2016 11:28 - CONCLUSION: Uncomplicated ultrasound guided thoracentesis. Prabhakar Nguyễn MD Chest X-Ray 11/22/16 0000 Signed Impressions: Service Date/Time: Tuesday, November 22, 2016 12:05 - CONCLUSION: Stable chest. No pneumothorax. Loculated right pleural effusion and right lung mass are stable. Preet Gillespie MD CT Angiography 11/21/16 1124 Signed Impressions: Service Date/Time: Monday, November 21, 2016 14:17 - CONCLUSION: No pulmonary embolism. Large right effusion and right lung atelectasis. Lanre Pearce MD PE at Discharge GENERAL: Elderly female, no acute distress. CARDIOVASCULAR: Regular rate and rhythm. RESPIRATORY: No accessory muscle use. Left lung clear. Right side diminished at the base. GASTROINTESTINAL: Abdomen soft, non-tender, nondistended. MUSCULOSKELETAL: Extremities without clubbing, cyanosis, or edema. No obvious deformities. NEUROLOGICAL: Awake and alert. Normal speech. PSYCHIATRIC: Appropriate mood and affect; insight and judgment normal. Pt update on day of discharge Patient reports she is feeling better. She is eager to go home after blood transfusion today. Shortness of breath improved. Hospital Course 76-year-old female with past medical history significant for stage III non- small cell adenocarcinoma of the right lung that was diagnosed in March of this year treated with concurrent radiation and chemotherapy who is now on Cisplatin and Alimta under the care of Dr. Johnson who presents to [facility] ED with complaints of cough and shortness of breath 1 week. Evaluation and treatment course detailed below: Cough and dyspnea secondary to large right sided pleural effusion - Chest x-ray personally reviewed showing large partially loculated right pleural effusion - CTA personally reviewed negative for PE but showing large right effusion and right lung atelectasis - S/P thoracentesis, 1 L removed. Fluid sent for studies - Seen by Pulmonology and started on Ceftin. Patient is stable for discharge. She will follow-up outpatient with her seismic engineer and oncologist for results of fluid studies. Elevated troponin - Doubt ACS, likely due to demand ischemia from pleural effusion. Troponin remained flat. - EKG personally reviewed showing sinus rhythm, heart rate 96, no acute ST changes noted Stage III non-small cell adenocarcinoma of the right lung - Per report, not amenable to surgical intervention due to cardiac proximity - Status post concurrent radiation and chemotherapy now on maintenance therapy with Cisplatin and Alimta - Medical oncologist Dr. Johnson followed the patient. She will follow-up outpatient with him. Hypertension - Continue home dose of metoprolol 150 mg by mouth twice a day, hydrochlorothiazide 25 mg daily and amlodipine 5 mg daily - Monitor BP Hypomagnesemia Hypokalemia -S/P replacement. - A.m. labs to monitor response Anemia -Acute on chronic with history of recurrent transfusion. -H&H dropped and the patient was transfused 1 unit of PRBC. -Outpatient follow-up with hematology/oncology. Depression Anxiety - Resume home antidepressant and anxiolytic Pt Condition on Discharge: Good Discharge Disposition: Discharge Home Discharge Time: <= 30 minutes Discharge Instructions DIET: Follow Instructions for: Heart Healthy Diet Activities you can perform: Regular-No Restrictions Follow up Referrals: Oncology Pulmonology - 1 Week New Medications: Cefuroxime (Cefuroxime) 500 Mg Tab 500 MG PO Q12HR, #14 TAB Continued Medications: Alprazolam (Alprazolam) 0.25 Mg Tab 0.25 MG PO TID for ANXIETY, TAB 0 Refills Amlodipine (Amlodipine) 5 Mg Tab 5 MG PO DAILY for Blood Pressure Management, #30 TAB 0 Refills Buspirone (Buspirone) 5 Mg Tab 5 MG PO BID for Anxiety, TAB 0 Refills Folic Acid (Folic Acid) 0.4 Mg Tab 400 MCG PO DAILY for Nutritional Supplement, TAB 0 Refills Hydrochlorothiazide (Hydrochlorothiazide) 25 Mg Tab 25 MG PO DAILY, #30 TAB 0 Refills Hydrocodone-Homatropine Liq (Hydromet Liq) 5-1.5 Mg/5 Ml Syrp 7 ML PO BID PRN for COUGH, ML 0 Refills Metoprolol Succinate ER 24 HR (Metoprolol Succinate ER 24 HR) 100 Mg Tab 150 MG PO BID, #30 TAB 0 Refills Potassium Chloride ER (Potassium Chloride ER) 20 Meq Tab 40 MEQ PO BID for Electrolyte Replacement, #60 TAB 0 Refills Sertraline (Sertraline) 100 Mg Tab 100 MG PO DAILY, #30 TAB 0 Refills Tramadol (Tramadol) 50 Mg Tab 50 MG PO Q6H PRN for PAIN, TAB 0 Refills Daisy Barton MD Nov 23, 2016 09:47
--- NOTE | 2016-11-23 09:47 | HHI.DCPOC ---
Discharge Care Plan Diagnosis: (1) Pleural effusion (2) Dyspnea (3) Lung cancer Goals to Promote Your Health * To prevent worsening of your condition and complications * To maintain your health at the optimal level Directions to Meet Your Goals Take your medications as prescribed Follow your dietary instruction Follow activity as directed Keep your appointments as scheduled Take your immunizations and boosters as scheduled If your symptoms worsen call your PCP, if no PCP go to Urgent Care Center or Emergency Room Smoking is Dangerous to Your Health. Avoid second hand smoke Call the 24-hour hour crisis hotline for domestic abuse at Daisy Barton MD Nov 23, 2016 09:47
[2016-11-23] MEDS ORDERED: LIDOCAINE HCL 2% JELLY 5 ML SYRINGE TOPICAL ONE (10:45)
[2016-11-23 10:54] LABS: SCAN/DIFF AUTO DIFF CONFIRMED
[2016-11-23] MEDS: HYDROcodone 5 MG/HOMATROPINE 1.5 MG SYRUP 5 ML CUP PO PRN (11:48)
--- NOTE | 2016-11-23 11:56 | PD.ONC.PN ---
Subjective Subjective Remarks Afebrile overnight. Patient resting in bed in nad. No complaints. Eager to go home. Feeling much better after thoracentesis yesterday. Objective Data Date Time Temp Pulse Resp B/P (MAP) Pulse Ox O2 Delivery O2 Flow Rate FiO2 11/23/16 08:05 94 Nasal Cannula 3.00 11/23/16 07:50 97.7 105 20 121/69 (86) 98 11/23/16 04:50 101 11/23/16 04:00 98.0 106 17 117/72 (87) 96 11/23/16 00:43 115 11/23/16 00:00 97.3 129 18 128/82 (97) 95 11/22/16 21:14 115 11/22/16 20:40 97.0 125 18 142/85 (104) 96 11/22/16 15:59 98.3 119 20 132/62 (85) 98 11/22/16 12:35 99 18 115/10 (45) 98 11/22/16 12:20 98.0 111 18 114/71 (85) 98 Result Diagram: 11/23/1608 11/23/16707 Laboratory Results Laboratory Tests Test 11/22/16 11:55 11/23/16 07:08 Body Fluid Amylase Source PLEURAL FLUID Body Fluid Amylase 22 U/L Pleural Fluid pH 8.0 Pleural Fluid WBC 380 /MM3 Pleural Fluid RBC 33062 /MM3 Pleural Fluid Neutrophils 38 % Pleural Fluid Lymphocytes 57 % Pleural Fluid Monocytes 2 % Pleural Fluid Eosinophils 2 % Pleural Fluid Basophils 1 % Pleural Fluid Total Protein 4.4 GM/DL Pleural Fluid LDH 223 U/L Pleural Fluid Glucose 115 MG/DL White Blood Count 3.4 TH/MM3 Red Blood Count 2.13 MIL/MM3 Hemoglobin 7.4 GM/DL Hematocrit 21.3 % Mean Corpuscular Volume 99.8 FL Mean Corpuscular Hemoglobin 34.7 PG Mean Corpuscular Hemoglobin Concent 34.7 % Red Cell Distribution Width 16.2 % Platelet Count 104 TH/MM3 Mean Platelet Volume 7.5 FL Neutrophils (%) (Auto) 50.7 % Lymphocytes (%) (Auto) 23.1 % Monocytes (%) (Auto) 24.7 % Eosinophils (%) (Auto) 1.3 % Basophils (%) (Auto) 0.2 % Neutrophils # (Auto) 1.7 TH/MM3 Lymphocytes # (Auto) 0.8 TH/MM3 Monocytes # (Auto) 0.8 TH/MM3 Eosinophils # (Auto) 0.0 TH/MM3 Basophils # (Auto) 0.0 TH/MM3 CBC Comment AUTO DIFF Differential Comment AUTO DIFF CONFIRMED Blood Urea Nitrogen 9 MG/DL Creatinine 0.60 MG/DL Random Glucose 120 MG/DL Total Protein 6.6 GM/DL Albumin 2.5 GM/DL Calcium Level 8.6 MG/DL Alkaline Phosphatase 53 U/L Aspartate Amino Transf (AST/SGOT) 22 U/L Alanine Aminotransferase (ALT/SGPT) 16 U/L Total Bilirubin 0.3 MG/DL Sodium Level 137 MEQ/L Potassium Level 3.6 MEQ/L Chloride Level 99 MEQ/L Carbon Dioxide Level 33.0 MEQ/L Anion Gap 5 MEQ/L Estimat Glomerular Filtration Rate 97 ML/MIN Culture Results Microbiology Date/Time Source Procedure Growth Status 11/21/16 11:55 Blood Peripheral Aerobic Blood Culture - Preliminary NO GROWTH IN 2 DAYS Resulted 11/21/16 11:55 Blood Peripheral Anaerobic Blood Culture - Preliminary NO GROWTH IN 2 DAYS Resulted 11/21/16 11:50 Blood Peripheral Aerobic Blood Culture - Preliminary NO GROWTH IN 2 DAYS Resulted 11/21/16 11:50 Blood Peripheral Anaerobic Blood Culture - Preliminary NO GROWTH IN 2 DAYS Resulted 11/22/16 11:55 Fluid Pleural Fluid Fungal Smear - Final NO FUNGAL ELEMENTS SEEN. Resulted 11/22/16 11:55 Fluid Pleural Fluid Fungal Culture Pending Resulted 11/22/16 11:55 Fluid Pleural Fluid Acid Fast Stain Pending Received 11/22/16 11:55 Fluid Pleural Fluid Mycobacterial Culture Pending Received 11/22/16 11:55 Fluid Pleural Fluid Gram Stain - Final Resulted 11/22/16 11:55 Fluid Pleural Fluid Body Fluid Culture - Preliminary NO GROWTH IN 24 HOURS. Resulted Administered Medications Medications (Trade) Dose Ordered Sig/Katia Route PRN Reason Start Time Stop Time Status Last Admin Dose Admin Alprazolam (Xanax) 0.25 mg TID PO 11/21/16 18:00 11/23/16 11:48 Amlodipine Besylate (Norvasc) 5 mg DAILY PO 11/22/16 09:00 11/23/16 09:33 Buspirone HCl (Buspar) 5 mg BID PO 11/21/16 21:00 11/23/16 09:33 Hydrochlorothiazide (Hydrodiuril) 25 mg DAILY PO 11/22/16 09:00 11/23/16 09:34 Potassium Chloride (KCl) 40 meq BID PO 11/21/16 21:00 11/23/16 09:34 Sertraline HCl (Zoloft) 100 mg DAILY PO 11/22/16 09:00 11/23/16 09:33 Metoprolol Succinate (Toprol Xl) 150 mg BID PO 11/21/16 21:00 11/23/16 09:33 Sodium Chloride (NS Flush) 2 ml BID IV FLUSH 11/21/16 21:00 11/23/16 09:35 Magnesium Hydroxide (Milk Of Magnesia Liq) 30 ml Q12H PRN PO MILD - MODERATE CONSTIPATION 11/21/16 14:30 11/23/16 09:39 Hydrocodone Bit/ Homatropine Methylb (Hycodan Liq) 7 ml BID PRN PO COUGH 11/21/16 17:00 11/23/16 11:48 Cefuroxime Axetil (Ceftin) 500 mg Q12HR PO 11/22/16 21:00 11/23/16 09:33 Objective Remarks GENERAL: Pleasant elderly female upright in bed in nad. On 3L O2 via NC SKIN: Warm and dry. HEAD: Normocephalic. EYES: No injection or drainage. NECK: Supple, trachea midline. CARDIOVASCULAR: Regular rate and rhythm RESPIRATORY: clear to auscultation all lung tello. GASTROINTESTINAL: Abdomen soft, non-tender, nondistended. EXTREMITIES: No cyanosis. NEUROLOGICAL: awake and alert, normal speech. moving all extremities. Assessment/Plan Problem List: (1) Pleural effusion ICD Codes: J90 - Pleural effusion, not elsewhere classified Status: Acute Plan: 11/23: tolerated thoracentesis yesterday. cytology pending. agree with 1 unit pRBC. follow up in clinic once discharged --presented with cough, shortness of breath and tachycardia. --due to a large right pleural effusion. --etiology of the pleural effusion could be benign or malignant. --pulmonology following. (2) History of lung cancer ICD Codes: Z85.118 - Personal history of other malignant neoplasm of bronchus and lung Status: Acute Plan: --on maintenance Alimta outpatient History --history of non-small cell lung cancer, squamous cell carcinoma stage III, diagnosed in March 2016. --went to the [facility] to get a second opinion and they have recommended combined concurrent radiation and chemotherapy. The patient elected to have treatment locally. --May 16 started on radiation and weekly carboplatin and Taxol chemotherapy ; however, the patient was found to have an allergic reaction to Taxol. The Taxol was switched over to Taxotere and again the patient had an allergic reaction with Taxotere as well. --Subsequently she developed a reaction from carboplatin. She was treated with cisplatin chemotherapy along with radiation which she completed on July 07. --restaging CT chest showed right upper lobe lung mass has decreased in size to 6 cm and there was no mediastinal lymphadenopathy noted. --was treated with consolidative cisplatin and Alimta chemotherapy for 4 cycles. --repeat PET scan showed an excellent response, however, there was still residual malignancy noted in the right upper lobe lung mass. --started on maintenance Alimta chemotherapy last week Monday. Assessment 76y/o female with non-small cell lung cancer. h/o Non-small cell lung cancer, adenocarcinoma. Anxiety disorder. Arthritis. Depression. History of ovarian cancer September 1988 with surgery followed by chemotherapy. Hypertension. Attending Statement less SOB after Thoracentesis. Wants to go home. DR Dotson notes reviewed. No Bronch. Hemoptysis has resolved. PRBC today. Clear to d/c home. FU as outpt. Geneva Alba Nov 23, 2016 11:56 Dayne Johnson MD Nov 23, 2016 14:41
[2016-11-23] MEDS ORDERED: ACETAMINOPHEN 325 MG TAB PO ONE (16:45)
[2016-11-23] MEDS ORDERED: diphenhydrAMINE HCL 25 MG CAP PO ONE (16:45)
== END 2016-11-24 00:03 | disposition home or self-care (01) | DRG 187 ==
LOC: NEPC 10:48 → NEDA 14:21 → NEDH 18:45 → NEPHCDU 20:01 → HOCA 11-22 20:42
PROVIDERS: ADMIT Family Medicine; ATTEND Family Medicine
PROC: 0W993ZX Drainage of Right Pleural Cavity, Percutaneous Approach, Diagnostic (ICD-10-PCS; principal; 2016-11-22)
PROC: 30233N1 Transfusion of Nonautologous Red Blood Cells into Peripheral Vein, Percutaneous Approach (ICD-10-PCS; 2016-11-23)
DX: J90 Pleural effusion, not elsewhere classified (principal); C34.91 Malignant neoplasm of unspecified part of right bronchus or lung; D64.9 Anemia, unspecified; E83.42 Hypomagnesemia; I10 Essential (primary) hypertension; F32.9 Major depressive disorder, single episode, unspecified; J98.11 Atelectasis; Z92.3 Personal history of irradiation; Z92.21 Personal history of antineoplastic chemotherapy; Z79.899 Other long term (current) drug therapy; Z85.43 Personal history of malignant neoplasm of ovary; F41.9 Anxiety disorder, unspecified; E87.6 Hypokalemia; R74.8 Abnormal levels of other serum enzymes; Z87.891 Personal history of nicotine dependence; Z88.8 Allergy status to other drugs, medicaments and biological substances; M19.90 Unspecified osteoarthritis, unspecified site
CPT/HCPCS: 32555; 36430; 71010; 71275; 80048; 80053; 81001; 82150; 82550; 82552; 82945; 83605; 83615; 83735; 83880; 83986; 84157; 84484; 85007; 85025; 85027; 85610; 85730; 86850; 86900; 86901; 86920; 87015; 87040; 87070; 87102; 87116; 87205; 87206; 88112; 88305; 89051; 93005; 96361; 96374; C1729; J2405; J3475; J3480; J7040; P9016; Q9967

== ENCOUNTER 2017-02-16 13:59 | Inpatient (IN) | payer OTHER, MEDICARE ==
[~2017-02-16] VITALS: Ht 165.1 cm; Wt 82.3 kg
[~2017-02-16 13:59] MED LIST changes: +CEFU1TAB20 PO; +FOLI400T PO; +HYCOS PO; -MEDR4PAK PO; -METO100T9 PO; +METO1TAB43 PO; -PERC7.5T13 PO; +POTA-163 PO; -PRIL20CA9 PO; -ZOLP5TAB3 PO
[2017-02-16] MEDS ORDERED: IOHEXOL 350 MG/ML 10 ML VIAL (for RAD DIAG) IVCONTRAST ONE (14:00)
[2017-02-16 14:02] VITALS: BP 130/70; PULSE 124; RESP 16; TEMP 98; O2SAT 96
[2017-02-16 15:20] LABS: AUTOMATED NEUTROPHIL # 3.8 TH/MM3 (1.8-7.7); BASOPHIL % 0.7 % (0.0-2.0); EOSINOPHIL # 0.1 TH/MM3 (0-0.4); EOSINOPHIL % 1.4 % (0.0-4.0); HEMATOCRIT 29.7 % (35.0-46.0); HEMOGLOBIN 9.9 GM/DL (11.6-15.3); LYMPH % 16.7 % (9.0-44.0); LYMPHOCYTE # 0.9 TH/MM3 (1.0-4.8); MEAN CELL VOLUME 93.4 FL (80.0-100.0); MEAN CORPUSCULAR HEMOGLOBIN 31.1 PG (27.0-34.0); MEAN CORPUSCULAR HGB CONC 33.3 % (32.0-36.0); MEAN PLATELET VOLUME 7.5 FL (7.0-11.0); MONOCYTE # 0.7 TH/MM3 (0-0.9); NEUT % 69.2 % (16.0-70.0); PLATELET COUNT 246 TH/MM3 (150-450); RED BLOOD COUNT 3.18 MIL/MM3 (4.00-5.30); RED CELL DISTRIBUTION WIDTH 16.1 % (11.6-17.2); WHITE BLOOD COUNT 5.5 TH/MM3 (4.0-11.0)
[2017-02-16 15:24] LABS: INTERNATIONAL NORMALIZED RATIO 1.1 RATIO; PROTHROMBIN TIME - PATIENT 11.4 SEC (9.8-11.6)
[2017-02-16 15:49] LABS: ALBUMIN 3.3 GM/DL (3.4-5.0); ALKALINE PHOSPHATASE 76 U/L (45-117); ALT (GPT) 14 U/L (10-53); AST (GOT) 18 U/L (15-37); BICARBONATE 32.7 MEQ/L (21.0-32.0); BLOOD UREA NITROGEN 15 MG/DL (7-18); CALCIUM 9.7 MG/DL (8.5-10.1); CHLORIDE 99 MEQ/L (98-107); CREATININE 0.55 MG/DL (0.50-1.00); GLOMERULAR FILTRATION RATE 107 ML/MIN (>89); GLUCOSE,RANDOM 105 MG/DL (74-106); MAGNESIUM 1.7 MG/DL (1.5-2.5); SODIUM (NA) 141 MEQ/L (136-145); TOTAL BILIRUBIN ADULT 0.3 MG/DL (0.2-1.0); TOTAL PROTEIN 8.2 GM/DL (6.4-8.2); TROPONIN I LESS THAN 0.02 NG/ML (0.02-0.05)
--- NOTE | 2017-02-16 16:25 | RADRPT ---
EXAM DATE/TIME: 02/16/2017 15:37 [facility] COMPARISON: CHEST SINGLE AP, November 21, 2016, 12:11. CHEST EXPIRATION ONLY, December 23, 2016, 11:48. INDICATIONS : Short of breath. MEDICAL HISTORY : Hypertension. Carcinoma, lung. anxiety, chemotherapy, radiation SURGICAL HISTORY : Appendectomy. Hysterectomy. left breast biopsy ENCOUNTER: Initial ACUITY: 1 day PAIN SCORE: 0/10 LOCATION: Bilateral chest FINDINGS: Today's exam is compared to prior studies. There continues to be opacification of the right mid right lower lung area which gives the appearance of a large pleural effusion. However, this is not signifi cantly changed compared to prior studies and the prior thoracentesis only drained 600 cc. Therefore t his may be more pleural thickening then pleural effusion. The heart size is stable. There continues t o be pleural thickening along the right paratracheal margin. The left lung is clear and well-aerated. Compared to the prior studies no new or significant changes. CONCLUSION: Stable abnormal appearance of the right hemithorax compared to the prior exams. No significant change in the appearance of the thorax compared to 11/21/2016. Rajesh Zhang MD on February 16, 2017 at 16:18 Board Certified Radiologist. This report was verified electronically.
[2017-02-16] MEDS ORDERED: SODIUM CHLOR 0.9% 1000 ML INJ 1,000 ML IV ONE (16:30)
[2017-02-16 16:54] VITALS: BP 124/75; PULSE 102; RESP 19; O2SAT 100
[2017-02-16] MEDS ORDERED: POTASSIUM CHLORIDE 20 MEQ CONTROLLED RELEASE TAB PO ONE (18:45)
--- NOTE | 2017-02-16 18:45 | PD ---
HPI Chief Complaint: Respiratory Symptoms Time Seen by Provider: 16:21 Travel History International Travel<30 days: No Contact w/Intl Traveler<30days: No Traveled to known affect area: No History of Present Illness HPI The patient is 77 years old and arrives to the ER with complaint of shortness of breath tachycardia. The patient has a history of breast cancer and has a history of pleural effusion. She was seen by primary care provider about 2 weeks ago and a pleural effusion was observed then in the right lung however was not drained. She arrives now describing gradually increasing shortness of breath since then. No fever. No significant chest pain. Timing constant. Primary care provider was concerned about PE. PFSH Past Medical History Blood Disorders: No Anxiety: Yes Cancer: Yes Cardiovascular Problems: Yes Chemotherapy: Yes Diabetes: No Diminished Hearing: No Endocrine: No Genitourinary: No Hepatitis: No Hiatal Hernia: No Hypertension: Yes Immune Disorder: No Musculoskeletal: No Neurologic: No Psychiatric: No Reproductive: Yes (ovarian cancer) Respiratory: Yes (lung cancer) Radiation Therapy: Yes Thyroid Disease: No Tetanus Vaccination: Unknown Past Surgical History Abdominal Surgery: Yes (APPY ) AICD: No Appendectomy: Yes Body Medical Devices: NONE Cardiac Surgery: No Ear Surgery: No Eye Surgery: No Genitourinary Surgery: No Gynecologic Surgery: Yes (TOTAL HYSTERECTOMY 1988; "2ND LOOK SURGERY" 1989) Hysterectomy: Yes Joint Replacement: No Oral Surgery: No Pacemaker: No Thoracic Surgery: Yes (LEFT BREAST BIOPSY - BENIGN 2002) Other Surgery: Yes Social History Alcohol Use: No Tobacco Use: No Substance Use: No Allergies-Medications (Allergen,Severity, Reaction): Coded Allergies: docetaxel (Verified Allergy, Unknown, 02/16/17) paclitaxel (Verified Allergy, Unknown, 02/16/17) Uncoded Allergies: Taxol/Taxotere (Adverse Reaction, Severe, Facial flushing and shortness of breath, 06/13/16) Reported Meds & Prescriptions Reported Meds & Active Scripts Active Cefuroxime (Cefuroxime Axetil) 500 Mg Tab 500 Mg PO Q12HR Reported Potassium Chloride ER (Potassium Chloride) 20 Meq Tab 40 Meq PO BID Folic Acid 0.4 Mg Tab 400 Mcg PO DAILY Hydromet Liq (Hydrocodone Bit/Homatropine Methylb) 5-1.5 Mg/5 Ml Syrp 7 Ml PO BID PRN Tramadol (Tramadol HCl) 50 Mg Tab 50 Mg PO Q6H PRN Sertraline (Sertraline HCl) 100 Mg Tab 100 Mg PO DAILY Metoprolol Succinate ER 24 HR (Metoprolol Succinate) 100 Mg Tab 150 Mg PO BID Hydrochlorothiazide 25 Mg Tab 25 Mg PO DAILY Buspirone (Buspirone HCl) 5 Mg Tab 5 Mg PO BID Amlodipine (Amlodipine Besylate) 5 Mg Tab 5 Mg PO DAILY Alprazolam 0.25 Mg Tab 0.25 Mg PO TID Review of Systems Except as stated in HPI: all other systems reviewed are Neg Physical Exam Narrative GENERAL: 77 yo F, pleasant well-nourished well-developed SKIN: Focused skin assessment warm/dry. HEAD: Atraumatic. Normocephalic. EYES: Pupils equal and round. No scleral icterus. No injection or drainage. ENT: No nasal bleeding or discharge. Mucous membranes pink and moist. NECK: Trachea midline. No JVD. CARDIOVASCULAR: Trace tachycardia. The rhythm is regular. RESPIRATORY: No significant tachypnea or dyspnea. Slightly diminished lung sounds on the right side. GASTROINTESTINAL: Abdomen soft, non-tender, nondistended. Hepatic and splenic margins not palpable. MUSCULOSKELETAL: No obvious deformities. No clubbing. No cyanosis. No edema. NEUROLOGICAL: Awake and alert. No obvious cranial nerve deficits. Motor grossly within normal limits. Normal speech. PSYCHIATRIC: Appropriate mood and affect; insight and judgment normal. Data Data Last Documented VS Vital Signs Date Time Temp Pulse Resp B/P (MAP) Pulse Ox O2 Delivery O2 Flow Rate FiO2 02/16/17 16:54 102 19 124/75 (91) 100 Nasal Cannula 3.00 02/16/17 14:02 98.0 Vital signs reviewed Orders Orders Complete Blood Count With Diff (02/16/17 14:24) Comprehensive Metabolic Panel (02/16/17 14:24) Act Partial Throm Time (Ptt) (02/16/17 14:24) Prothrombin Time / Inr (Pt) (02/16/17 14:24) Magnesium (Mg) (02/16/17 14:24) Ckmb (Isoenzyme) Profile (02/16/17 14:24) Troponin I (02/16/17 14:24) Chest, Pa & Lat (02/16/17 14:24) Ct Pulmonary Angiogram (02/16/17 16:22) Sodium Chlor 0.9% 1000 Ml Inj (Ns 1000 M (02/16/17 16:30) Potassium Chloride (Kcl) (02/16/17 18:45) Iohexol 350 Inj (Omnipaque 350 Inj) (02/16/17 14:00) Admit Order (Ed Use Only) (02/16/17 ) Hand Rounder / Telemetry JAKOB.[id number] (02/16/17 19:14) Vital Signs (Adult) Q4H (02/16/17 19:14) Activity Bed Rest (02/16/17 19:14) Labs Laboratory Tests Test 02/16/17 14:50 White Blood Count 5.5 TH/MM3 Red Blood Count 3.18 MIL/MM3 Hemoglobin 9.9 GM/DL Hematocrit 29.7 % Mean Corpuscular Volume 93.4 FL Mean Corpuscular Hemoglobin 31.1 PG Mean Corpuscular Hemoglobin Concent 33.3 % Red Cell Distribution Width 16.1 % Platelet Count 246 TH/MM3 Mean Platelet Volume 7.5 FL Neutrophils (%) (Auto) 69.2 % Lymphocytes (%) (Auto) 16.7 % Monocytes (%) (Auto) 12.0 % Eosinophils (%) (Auto) 1.4 % Basophils (%) (Auto) 0.7 % Neutrophils # (Auto) 3.8 TH/MM3 Lymphocytes # (Auto) 0.9 TH/MM3 Monocytes # (Auto) 0.7 TH/MM3 Eosinophils # (Auto) 0.1 TH/MM3 Basophils # (Auto) 0.0 TH/MM3 CBC Comment DIFF FINAL Differential Comment Prothrombin Time 11.4 SEC Prothromb Time International Ratio 1.1 RATIO Activated Partial Thromboplast Time 28.2 SEC Blood Urea Nitrogen 15 MG/DL Creatinine 0.55 MG/DL Random Glucose 105 MG/DL Total Protein 8.2 GM/DL Albumin 3.3 GM/DL Calcium Level 9.7 MG/DL Magnesium Level 1.7 MG/DL Alkaline Phosphatase 76 U/L Aspartate Amino Transf (AST/SGOT) 18 U/L Alanine Aminotransferase (ALT/SGPT) 14 U/L Total Bilirubin 0.3 MG/DL Sodium Level 141 MEQ/L Potassium Level 2.8 MEQ/L Chloride Level 99 MEQ/L Carbon Dioxide Level 32.7 MEQ/L Anion Gap 9 MEQ/L Estimat Glomerular Filtration Rate 107 ML/MIN Total Creatine Kinase 72 U/L Troponin I LESS THAN 0.02 NG/ML MDM Medical Decision Making Medical Screen Exam Complete: Yes Emergency Medical Condition: Yes Medical Record Reviewed: Yes Differential Diagnosis NSTEMI, unstable angina, coronary vasospasm, PE, PTX, aortic dissection, pericarditis, myocarditis, endocarditis, PNA, esophageal disease, aneurysm, musculoskeletal etiologies, anxiety, cocaine/sympathomimetic abuse Narrative Course CBC & BMP Diagram 02/16/17 14:50 Total Protein 8.2, Albumin 3.3 L, Calcium Level 9.7, Magnesium Level 1.7, Alkaline Phosphatase 76, Aspartate Amino Transf (AST/SGOT) 18, Alanine Aminotransferase (ALT/SGPT) 14, Total Bilirubin 0.[address] Angiography 02/16/17 1622 Signed Impressions: Service Date/Time: January 18:14 - CONCLUSION: No evidence of pulmonary embolism. Persistent extensive atelectasis and partially loculated effusion in the right chest. Medial anterior right upper chest loculated effusion versus low density mass. Lanre Pearce MD Chest X-Ray 02/16/17 1424 Signed Impressions: Service Date/Time: January 15:37 - CONCLUSION: Stable abnormal appearance of the right hemithorax compared to the prior exams. No significant change in the appearance of the thorax compared to 11/21/2016. Rajesh Zhang MD The patient will be kept here due to tachycardia with minimal hypoxia. Discussed with Dr Means Pt stands to benefit from thoracentesis Diagnosis Primary Impression: Loculated pleural effusion Additional Impressions: Lung cancer Hypokalemia Dyspnea Anemia Admitting Information Admitting Physician Requests: Observation Lee Nino MD Feb 16, 2017 18:45
--- NOTE | 2017-02-16 18:49 | RADRPT ---
EXAM DATE/TIME: 02/16/2017 18:14 [facility] COMPARISON: CT PULMONARY ANGIOGRAM, November 21, 2016, 14:17. INDICATIONS : Tachycardia, worsening shortness of breath. IV CONTRAST: 74 cc Omnipaque 350 (iohexol) IV RADIATION DOSE: 22.84 CTDIvol (mGy) MEDICAL HISTORY : Hypertension. Carcinoma, lung. SURGICAL HISTORY : Appendectomy. Hysterectomy. ENCOUNTER: Initial ACUITY: 1 day PAIN SCALE: 0/10 LOCATION: chest TECHNIQUE: Volumetric scanning of the chest was performed using a pulmonary embolism protocol MIP images were re constructed. Using automated exposure control and adjustment of the mA and/or kV according to patien t size, radiation dose was kept as low as reasonably achievable to obtain optimal diagnostic quality images. DICOM format image data is available electronically for review and comparison. Follow-up recommendations for detected pulmonary nodules are based at a minimum on nodule size and pa tient risk factors according to Fleischner Society Guidelines. FINDINGS: PULMONARY ARTERIES: No filling defects are seen in the pulmonary arteries through the segmental level. LUNGS: Atelectasis and large right effusion, very similar to prior. PLEURAE: Large right effusion. MEDIASTINUM: There is good visualization of the great vessels of the middle mediastinum. There origin of the right subclavian artery. Low density medially loculated fluid versus low density mass in the upper anterio r right chest MUSCULOSKELETAL: Within normal limits for patient age. MISCELLANEOUS: The visualized upper abdominal organs demonstrate no acute abnormality. CONCLUSION: No evidence of pulmonary embolism. Persistent extensive atelectasis and partially loculated effusion in the right chest. Medial anterior right upper chest loculated effusion versus low density mass. Lanre Pearce MD on February 16, 2017 at 18:41 Board Certified Radiologist. This report was verified electronically.
[2017-02-16] MEDS ORDERED: MORPHINE SULFATE 2 MG/ML INJ IV PUSH PRN (19:30)
[2017-02-16] MEDS ORDERED: MAGNESIUM HYDROXIDE SUSP 30 ML CUP PO PRN (19:30)
[2017-02-16] MEDS ORDERED: RESP: ALBUTEROL 2.5 MG/IPRATROPIUM 0.5 MG NEB (PRN) NEB (19:30)
[2017-02-16] MEDS ORDERED: HYDROcodone 5 MG/HOMATROPINE 1.5 MG SYRUP 5 ML CUP PO PRN (19:30)
[2017-02-16] MEDS ORDERED: BISACODYL 10 MG SUPP RECTAL PRN (19:30)
[2017-02-16] MEDS ORDERED: ONDANSETRON HCL 4 MG/2 ML VIAL IVP PRN (19:30)
[2017-02-16] MEDS ORDERED: SENNOSIDES 8.6 MG TAB PO PRN (19:30)
[2017-02-16] MEDS ORDERED: LACTULOSE SYRUP 20 GM/30 ML CUP PO PRN (19:30)
[2017-02-16] MEDS ORDERED: ACETAMINOPHEN/HYDROcodone 325 MG/5 MG TAB PO PRN (19:30)
[2017-02-16] MEDS ORDERED: SODIUM CHLORIDE 0.9% FLUSH 10 ML FLUSH IV FLUSH PRN (19:30)
--- NOTE | 2017-02-16 19:32 | HHI.HP ---
[facility] Non-Staff Admission Diagnosis R Pleural Effusion; Hypoxia Diagnoses: (1) Lung cancer Diagnosis: Principal (2) Loculated pleural effusion Diagnosis: Principal (3) Hypokalemia Diagnosis: Principal (4) Chest pain Diagnosis: Principal (5) Anemia Diagnosis: Principal Travel History International Travel<30 Days: No Contact w/Intl Traveler <30 Da: No Traveled to Known Affected Are: No History of Present Illness This is a 77-year-old female with a PMH of HTN, Non-Small Cell Lung CA, O2 Dependent, Recurrent Pleural Effusion and Anxiety who was sent to the ER by her PCP for evaluation of possible PE. Seen by PCP secondary to c/o SOB x2 wks, symptoms worse w/ exertion, moderate-severe, associated w/ non-radiating chest pain. Similar symptoms in the past requiring thoracentesis 12/23/16, post- procedure CXR w/ residual small loculated right pleural effusion and right perihilar mass, images reviewed by me. Now w/ recurrent complaints of SOB and chest pain as above, found to be tachycardic by PCP. Denies fever, chills or cough. On arrival, BP 130/70, HR 124, O2 sat 96% on 3L NC, Afebrile. Hemoglobin 9.9, previously 12.1 on 12/23/16. K+ 2.8. Trop negative. INR 1.1. CXR with stable appearance of right hemithorax, no significant change. CTA Pulm negative for PE, persistent extensive atelectasis and partially loculated effusion in the right chest. Follows w/ Dr. Johnson and Dr. Ireland as outpatient. Review of Systems Except as stated in HPI: all other systems reviewed are Neg ROS: 14 point review of systems otherwise negative. Past Family Social History Past Medical History PMH: HTN, Non-Small Cell Lung CA, O2 Dependent, Recurrent Pleural Effusion and Anxiety Past Surgical History PAST SURGICAL HISTORY: Appendectomy, hysterectomy, Left Breast Biopsy Allergies: Coded Allergies: docetaxel (Verified Allergy, Unknown, 02/16/17) paclitaxel (Verified Allergy, Unknown, 02/16/17) Uncoded Allergies: Taxol/Taxotere (Adverse Reaction, Severe, Facial flushing and shortness of breath, 06/13/16) Family History PAST FAMILY HISTORY: Reviewed. No h/o DM or CAD Social History PAST SOCIAL HISTORY: Negative for alcohol, tobacco or drugs. Physical Exam Vital Signs Vital Signs Date Time Temp Pulse Resp B/P (MAP) Pulse Ox O2 Delivery O2 Flow Rate FiO2 02/16/17 16:54 102 19 124/75 (91) 100 Nasal Cannula 3.00 02/16/17 16:25 19 Nasal Cannula 3.00 02/16/17 14:02 98.0 124 16 130/70 (90) 96 Nasal Cannula Physical Exam PE: GENERAL: Very pleasant elderly white female in no acute distress. HEENT: PERRLA, EOMI. No scleral icterus or conjunctival pallor. No lid lag or facial droop. CARDIOVASCULAR: Regular rate and rhythm. No obvious murmurs to auscultation. No chest tenderness to palpation. RESPIRATORY: No obvious rhonchi or wheezing. No crackles. Diminished breath sounds on right. GASTROINTESTINAL: Abdomen soft, non-tender, nondistended. BS normal. MUSCULOSKELETAL: Extremities without clubbing, cyanosis, or edema. No obvious deformities. NEUROLOGICAL: Awake, alert and oriented x4. No focal neurologic deficits. Moving both upper and lower extremities spontaneously. Laboratory Laboratory Tests Test 02/16/17 14:50 White Blood Count 5.5 Red Blood Count 3.18 Hemoglobin 9.9 Hematocrit 29.7 Mean Corpuscular Volume 93.4 Mean Corpuscular Hemoglobin 31.1 Mean Corpuscular Hemoglobin Concent 33.3 Red Cell Distribution Width 16.1 Platelet Count 246 Mean Platelet Volume 7.5 Neutrophils (%) (Auto) 69.2 Lymphocytes (%) (Auto) 16.7 Monocytes (%) (Auto) 12.0 Eosinophils (%) (Auto) 1.4 Basophils (%) (Auto) 0.7 Neutrophils # (Auto) 3.8 Lymphocytes # (Auto) 0.9 Monocytes # (Auto) 0.7 Eosinophils # (Auto) 0.1 Basophils # (Auto) 0.0 CBC Comment DIFF FINAL Differential Comment Prothrombin Time 11.4 Prothromb Time International Ratio 1.1 Activated Partial Thromboplast Time 28.2 Blood Urea Nitrogen 15 Creatinine 0.55 Random Glucose 105 Total Protein 8.2 Albumin 3.3 Calcium Level 9.7 Magnesium Level 1.7 Alkaline Phosphatase 76 Aspartate Amino Transf (AST/SGOT) 18 Alanine Aminotransferase (ALT/SGPT) 14 Total Bilirubin 0.3 Sodium Level 141 Potassium Level 2.8 Chloride Level 99 Carbon Dioxide Level 32.7 Anion Gap 9 Estimat Glomerular Filtration Rate 107 Total Creatine Kinase 72 Troponin I LESS THAN 0.02 Result Diagram: 02/16/17 1450 02/16/17 1450 Caprini VTE Risk Assessment Caprini VTE Risk Assessment: No/Low Risk (score <= 1) Caprini Risk Assessment Model Point Value = 1 Point Value = 2 Point Value = 3 Point Value = 5 Age 41-60 Minor surgery BMI > 25 kg/m2 Swollen legs Varicose veins or History of unexplained or recurrent spontaneous Oral contraceptives or hormone replacement Sepsis (< 1 month) Serious lung disease, including pneumonia (< 1 month) Abnormal pulmonary function Acute myocardial infarction Congestive heart failure (< 1 month) History of inflammatory bowel disease Medical patient at bed rest Age 61-74 Arthroscopic surgery Major open surgery (> 45 min) Laparoscopic surgery (> 45 min) Malignancy Confined to bed (> 72 hours) Immobilizing plaster cast Central venous access Age >= 75 History of VTE Family history of VTE Factor V Leiden Prothrombin [id number] Lupus anticoagulant Anticardiolipin antibodies Elevated serum homocysteine Heparin-induced thrombocytopenia Other congenital or acquired thrombophilia Stroke (< 1 month) Elective arthroplasty Hip, pelvis, or leg fracture Acute spinal cord injury (< 1 month) Prophylaxis Regimen Total Risk Factor Score Risk Level Prophylaxis Regimen 0-1 Low Early ambulation 2 Moderate Order ONE of the following: *Sequential Compression Device (SCD) *Heparin 5000 units SQ BID 3-4 Higher Order ONE of the following medications: *Heparin 5000 units SQ TID *Enoxaparin/Lovenox 40 mg SQ daily (WT < 150 kg, CrCl > 30 mL/min) *Enoxaparin/Lovenox 30 mg SQ daily (WT < 150 kg, CrCl > 10-29 mL/min) *Enoxaparin/Lovenox 30 mg SQ BID (WT < 150 kg, CrCl > 30 mL/min) AND/OR *Sequential Compression Device (SCD) 5 or more Highest Order ONE of the following medications: *Heparin 5000 units SQ TID (Preferred with Epidurals) *Enoxaparin/Lovenox 40 mg SQ daily (WT < 150 kg, CrCl > 30 mL/min) *Enoxaparin/Lovenox 30 mg SQ daily (WT < 150 kg, CrCl > 10-29 mL/min) *Enoxaparin/Lovenox 30 mg SQ BID (WT < 150 kg, CrCl > 30 mL/min) AND *Sequential Compression Device (SCD) Assessment and Plan Problem List: (1) Lung cancer ICD Code: C34.90 - Malignant neoplasm of unspecified part of unspecified bronchus or lung Status: Acute (2) Chest pain ICD Code: R07.9 - Chest pain, unspecified (3) Hypokalemia ICD Code: E87.6 - Hypokalemia (4) Loculated pleural effusion ICD Code: J90 - Pleural effusion, not elsewhere classified (5) Anemia ICD Code: D64.9 - Anemia, unspecified Assessment and Plan A/P: 1. Lung CA: Non-Small Cell Lung CA s/p Chemo/Radiation, following w/ Dr. Johnson as outpatient. O2 Dependent, O2 sat 94% on 3L NC, will monitor. Consult Dr. Johnson as needed. 2. Loculated Pleural Effusion: Right. H/o previous pleural effusion s/p thoracentesis 12/23/16, post-procedure CXR w/ small residual loculated pleural effusion, now w/ progressive SOB and associated chest pain. CXR w/ stable abnormal right hemithorax, CTA Pulm negative for PE, extensive atelectasis and partially loculated effusion in right chest, images reviewed by me. Consult IR for thoracentesis in am. DuoNeb prn. 3. Chest Pain: associated w/ SOB, likely secondary to pleural effusion, underlying Lung CA. Initial trop negative, will check serial cardiac enzymes. Hold ASA for thoracentesis. 4. Hypokalemia: K+ 2.8, s/p 60mEq K+ in ER, will recheck labs and replace as needed. 5. Anemia: Acute on Chronic. Hgb 9.9, previously 12.1 on 12/23/16, 9.5 on . No active bleeding. Recheck labs in am. 6. DVT Prophylaxis: SCD/Teds. 7. Social work for d/c planning as needed 8. Previous records/imaging/labs reviewed by me, case discussed at length w/ ER physician. Chelsea Means MD Feb 16, 2017 19:32
[2017-02-16 19:35] VITALS: BP 121/81; PULSE 114; RESP 18; O2SAT 98
[2017-02-16] MEDS: SODIUM CHLORIDE 0.9% FLUSH 10 ML FLUSH IV FLUSH SCH (21:00)
[2017-02-16] MEDS: busPIRone HCL 5 MG TAB PO SCH (21:44)
[2017-02-16] MEDS: DOCUSATE SODIUM 50 MG/SENNA 8.6 MG TAB PO SCH (21:45)
[2017-02-17 01:22] VITALS: BP 105/56; PULSE 108; RESP 18; TEMP 98.2; O2SAT 98
[2017-02-17] MEDS ORDERED: diphenhydrAMINE HCL 25 MG CAP PO ONE (01:30)
[2017-02-17] MEDS: ACETAMINOPHEN 325 MG TAB PO PRN ×2 (01:40→09:47)
[2017-02-17 07:00] VITALS: PULSE 98
[2017-02-17 07:23] VITALS: BP 112/68; PULSE 99; RESP 18; TEMP 98; O2SAT 99
[2017-02-17] MEDS ORDERED: amLODIPine BESYLATE 5 MG TAB PO SCH (09:00)
[2017-02-17] MEDS ORDERED: FOLIC ACID 1 MG TAB PO SCH (09:00)
[2017-02-17] MEDS ORDERED: SERTRALINE HCL 100 MG TAB PO SCH (09:00)
[2017-02-17] MEDS: SODIUM CHLORIDE 0.9% FLUSH 10 ML FLUSH IV FLUSH SCH ×2 (09:00→09:46)
[2017-02-17] MEDS: DOCUSATE SODIUM 50 MG/SENNA 8.6 MG TAB PO SCH (09:00)
--- NOTE | 2017-02-17 09:05 | PD.RAD ---
Post US Procedure Prog Note Pre Procedure Diagnosis: (1) Loculated pleural effusion Post Procedure Diagnosis: (1) Loculated pleural effusion Procedure Date: Feb 17, 2017 Supervising Radiologist: Justin Desai Anesthesia: Local Plan of Activity Patient to Unit: Nursing Unit Patient Condition: Good See PACS Report for procedural detail/treatment Drainage Procedure Procedure 1 Side: Right Procedure: Removal Drainage: Suction Fluid Removal (CCs): 750 Fluid Description: Dante Mcfarland Oscar F. MD Feb 17, 2017 09:05
--- NOTE | 2017-02-17 09:23 | RADRPT ---
EXAM DATE/TIME: 02/17/2017 09:10 [facility] COMPARISON: CHEST EXPIRATION ONLY, December 23, 2016, 11:48. INDICATIONS : Post thoracentesis, right. MEDICAL HISTORY : Carcinoma, lung. SURGICAL HISTORY : Port placement. ENCOUNTER: Initial ACUITY: 1 day PAIN SCORE: 4/10 LOCATION: Right chest FINDINGS: Interval improvement in right-sided pleural effusion with small residual hydropneumothorax. Redemonst ration of right perihilar mass and consolidation. Cardiomediastinal contours are stable. Stable left IJ [id number]. Remainder of the exam is unchanged. CONCLUSION: 1. Small hydropneumothorax following right sided thoracentesis likely ex vacuo in this patient with r ight hilar mass. Colton White MD on February 17, 2017 at 9:19 Board Certified Radiologist. This report was verified electronically.
[2017-02-17] MEDS: busPIRone HCL 5 MG TAB PO SCH (09:46)
[2017-02-17] MEDS: ALPRAZolam 0.25 MG TAB PO SCH ×4 (09:47→18:00)
--- NOTE | 2017-02-17 09:56 | PD.RAD ---
Radiology Note S/P Rt thoracentesis Small PTX noted due to incomplete re-expansion of lung, Followup CXR ordered. Justin Desai MD Feb 17, 2017 09:56
--- NOTE | 2017-02-17 10:14 | RADRPT ---
EXAM DATE/TIME: 02/17/2017 08:05 [facility] COMPARISON: EXTERNAL COMPARISON: US GUIDED THORACENTESIS RIGHT, December 23, 2016, 11:09. [facility], Chest [facility], Dec 19 2016 . [facility], PET/CT Tumor, 11/07/16. [facility], CT Chest, 09/12/16. INDICATIONS : Right pleural effusion. MEDICAL HISTORY : Ovarian and lung cancer. Chemotherapy and Radiation. SURGICAL HISTORY : Left breast biopsy. Appendectomy. Hysterectomy. Lung biopsy ENCOUNTER: Subsequent ACUITY: 1 day PAIN SCORE: 5/10 LOCATION: Right chest FLUID: Total volume of 750 cc of heather fluid was removed. Fluid was sent to lab for ordered studies. TECHNIQUE: 1. Ultrasound guidance for thoracentesis. 2. Thoracentesis. The risks, benefits, and alternatives to ultrasound guided thoracentesis were explained to the patien t in lay simple terms, including the risk of bleeding and infection. Written and verbal informed con sent was obtained. Appropriate area for thoracentesis was marked under ultrasound guidance with the patient in the uprig ht position. Overlying skin was prepped and draped in the usual sterile fashion and with local anest hetic, a dermatotomy was made with an 11 blade scalpel. A 6 Gabonese thoracentesis catheter was placed in the pleural space and fluid was removed. Catheter was then removed and a sterile dressing applie d. There were no immediate complications. The patient tolerated the procedure well and the left the ultrasound suite in stable condition. Chest radiograph is to be obtained. A small right basilar pneu mothorax was noted. CONCLUSION: Ultrasound guided thoracentesis. Small post thoracentesis basilar pneumothorax due to incomplete reexpansion of the lung. Followup chest radiograph will be obtained. Justin Desai MD on February 17, 2017 at 10:10 Board Certified Radiologist. This report was verified electronically.
[2017-02-17 10:47] LABS: PLEURAL FLUID EOS 1 %; PLEURAL FLUID LYMPHS 95 %; PLEURAL FLUID POLYS (SEGS) 4 %; PLEURAL FLUID RBC 12324 /MM3 (0-0); PLEURAL FLUID WBC 450 /MM3 (0-10)
[2017-02-17] MEDS ORDERED: METOPROLOL SUCCINATE 25 MG EXTENDED RELEASE TAB PO ONE (11:00)
[2017-02-17 11:18] VITALS: BP 148/79; PULSE 108; RESP 18; TEMP 98.6; O2SAT 99
--- NOTE | 2017-02-17 12:43 | RADRPT ---
EXAM DATE/TIME: 02/17/2017 12:01 [facility] COMPARISON: CHEST EXPIRATION ONLY, November 22, 2016, 12:05. CHEST EXPIRATION ONLY, December 23, 2016, 11:48. [facility] EST EXPIRATION ONLY, February 17, 2017, 9:10. INDICATIONS : S/p thoracentesis. MEDICAL HISTORY : Ovarian and lung ca., chemo and radiation therapy SURGICAL HISTORY : Appendectomy. Hysterectomy. left breast bx, lung bx ENCOUNTER: Initial ACUITY: 1 day PAIN SCORE: 0/10 LOCATION: Bilateral chest FINDINGS: A single frontal expiratory view of the chest was performed. Comparison is made to an inspiratory chest immediately following thoracentesis. The post thoracentesi s basilar pneumothorax on the right appears larger on the expiratory view. Chest is otherwise unchanged in appearance. CONCLUSION: Apparent enlargement of right pneumothorax which in part may be due to expiratory technique. The pneu mothorax is moderate in size. Findings discussed with ordering physician. Justin Desai MD on February 17, 2017 at 12:11 Board Certified Radiologist. This report was verified electronically.
[2017-02-17 12:54] LABS: AUTOMATED NEUTROPHIL # 5.7 TH/MM3 (1.8-7.7); BASOPHIL % 0.5 % (0.0-2.0); EOSINOPHIL % 0.6 % (0.0-4.0); HEMATOCRIT 29.5 % (35.0-46.0); HEMOGLOBIN 9.7 GM/DL (11.6-15.3); LYMPH % 9.2 % (9.0-44.0); LYMPHOCYTE # 0.6 TH/MM3 (1.0-4.8); MEAN CELL VOLUME 94.4 FL (80.0-100.0); MEAN CORPUSCULAR HGB CONC 32.8 % (32.0-36.0); MEAN PLATELET VOLUME 7.4 FL (7.0-11.0); MONOCYTE # 0.4 TH/MM3 (0-0.9); NEUT % 83.7 % (16.0-70.0); PLATELET COUNT 224 TH/MM3 (150-450); RED BLOOD COUNT 3.12 MIL/MM3 (4.00-5.30); RED CELL DISTRIBUTION WIDTH 15.7 % (11.6-17.2); WHITE BLOOD COUNT 6.8 TH/MM3 (4.0-11.0)
[2017-02-17 13:11] LABS: ALBUMIN 2.9 GM/DL (3.4-5.0); AST (GOT) 18 U/L (15-37); BICARBONATE 28.7 MEQ/L (21.0-32.0); BLOOD UREA NITROGEN 11 MG/DL (7-18); CALCIUM 9.5 MG/DL (8.5-10.1); CHLORIDE 102 MEQ/L (98-107); CREATININE 0.69 MG/DL (0.50-1.00); GLOMERULAR FILTRATION RATE 82 ML/MIN (>89); GLUCOSE,RANDOM 166 MG/DL (74-106); SODIUM (NA) 142 MEQ/L (136-145)
[2017-02-17 13:12] LABS: ALT (GPT) 14 U/L (10-53)
[2017-02-17 13:16] LABS: ALKALINE PHOSPHATASE 72 U/L (45-117); TOTAL BILIRUBIN ADULT 0.3 MG/DL (0.2-1.0); TOTAL PROTEIN 7.3 GM/DL (6.4-8.2); TROPONIN I LESS THAN 0.02 NG/ML (0.02-0.05)
[2017-02-17] MEDS ORDERED: POTASSIUM CHLORIDE 20 MEQ PWD PACKET PO ONE (13:45)
--- NOTE | 2017-02-17 14:37 | RADRPT ---
EXAM DATE/TIME: 02/17/2017 14:22 [facility] COMPARISON: CHEST PA & LAT, February 16, 2017, 15:37. INDICATIONS : Evaluate for pneumothorax. Status post thoracentesis. MEDICAL HISTORY : Carcinoma, lung. Ovarian cancer. SURGICAL HISTORY : Appendectomy. Hysterectomy. ENCOUNTER: Subsequent ACUITY: 3 days PAIN SCORE: 0/10 LOCATION: Bilateral chest FINDINGS: PA and lateral views of the chest were obtained and demonstrate an interval decrease in the right ple ural effusion. A pneumothorax is not identified along the right lateral lung base. This is moderate i n size with fluid filling a portion of the pneumothorax cavity. Right apical pleural-parenchymal rod ges noted consistent with fluid. The left lung remains clear. The heart size remains at the upper haney its of normal. The left sided central venous catheter remains in place as well. CONCLUSION: Interval decrease in the size of the right pleural effusion with small to moderate right basilar hydr opneumothorax now noted. Patric Patiño MD on February 17, 2017 at 14:34 Board Certified Radiologist. This report was verified electronically.
--- NOTE | 2017-02-17 16:29 | HHI.PR ---
Subjective Remarks Status post thoracentesis today patient was found to have a hydropneumothorax. This was monitored and through time has gradually increased. Options were discussed with the patient including further monitoring, cardiothoracic surgery consult, or pigtail chest tube with vacuum. Decision has been made to do the pigtail chest tube. Etiology for the pneumothorax may be secondary to poor movement of her lung causing some lung trapping which led to the pneumothorax. Further monitoring is needed at this time. Patient converted to inpatient. Objective Vital Signs Date Time Temp Pulse Resp B/P (MAP) Pulse Ox O2 Delivery O2 Flow Rate FiO2 02/17/17 11:18 98.6 108 18 148/79 (102) 99 02/17/17 07:23 98.0 99 18 112/68 (83) 99 02/17/17 07:00 98 02/17/17 03:02 18 02/17/17 01:22 98.2 108 18 105/56 (72) 98 02/16/17 22:54 18 02/16/17 19:35 114 18 121/81 (94) 98 Nasal Cannula 3.00 02/16/17 16:54 102 19 124/75 (91) 100 Nasal Cannula 3.00 02/16/17 16:25 19 Nasal Cannula 3.00 I/O 02/16/17 02/16/17 02/16/17 02/17/17 02/17/17 02/17/17 07:00 15:00 23:00 07:00 15:00 23:00 Intake Total 700 ml 700 ml Balance 700 ml 700 ml Intake Oral 700 ml IV Total 700 ml Result Diagram: 02/17/17 1221 02/17/17 1221 Objective Remarks GENERAL: NAD, A&Ox3 HEAD: Normocephalic. NECK: Supple, trachea midline. No lymphadenopathy. EYES: No scleral icterus. No injection or drainage. CARDIOVASCULAR: Regular rate and rhythm without murmurs, gallops, or rubs. RESPIRATORY: Breath sounds equal bilaterally. No accessory muscle use. GASTROINTESTINAL: Abdomen soft, non-tender, nondistended. MUSCULOSKELETAL: No cyanosis, or edema. SKIN: Warm and dry. NEURO: No focal neurological deficitis. A/P Problem List: (1) Loculated pleural effusion ICD Code: J90 - Pleural effusion, not elsewhere classified (2) Chest pain ICD Code: R07.9 - Chest pain, unspecified (3) Lung cancer ICD Code: C34.90 - Malignant neoplasm of unspecified part of unspecified bronchus or lung Status: Acute (4) Hypokalemia ICD Code: E87.6 - Hypokalemia Assessment and Plan Assessment and Plan 77-year-old female admitted secondary to right pleural effusion, status post thoracentesis patient has pneumothorax. Related pleural effusion Acute pneumothorax status post thoracentesis Pigtail chest tube placement with IR pending Tramadol for pain Oxygen as needed Occlusion with chest x-rays As needed nebulized breathing treatments Lung CA Contributory to pleural effusion May be contributory to pneumothorax status post thoracentesis Consulted Chest Pain Related to pleural effusion Improved status post thoracentesis Hypokalemia Monitor potassium level Replace as needed Anemia Follow CBC No evidence of active bleed DVT Prophylaxis Lee Smith MD Feb 17, 2017 16:29
[2017-02-17 17:12] VITALS: BP 122/69; PULSE 99; RESP 18; TEMP 97.7; O2SAT 100
[2017-02-17 17:32] VITALS: PULSE 115
--- NOTE | 2017-02-17 17:41 | HHI.DS ---
Discharge Summary Admission Date Feb 16, 2017 at 19:16 Discharge Date: Feb 17, 2017 Admitting Diagnosis R Pleural Effusion; Hypoxia (1) Lung cancer ICD Code: C34.90 - Malignant neoplasm of unspecified part of unspecified bronchus or lung Diagnosis: Principal Status: Acute (2) Chest pain ICD Code: R07.9 - Chest pain, unspecified Diagnosis: Principal (3) Hypokalemia ICD Code: E87.6 - Hypokalemia Diagnosis: Principal (4) Loculated pleural effusion ICD Code: J90 - Pleural effusion, not elsewhere classified Diagnosis: Principal (5) Anemia ICD Code: D64.9 - Anemia, unspecified Diagnosis: Principal (6) Pneumothorax ICD Code: J93.9 - Pneumothorax, unspecified Procedures Thoracentesis Brief History - From Admission This is a 77-year-old female with a PMH of HTN, Non-Small Cell Lung CA, O2 Dependent, Recurrent Pleural Effusion and Anxiety who was sent to the ER by her PCP for evaluation of possible PE. Seen by PCP secondary to c/o SOB x2 wks, symptoms worse w/ exertion, moderate-severe, associated w/ non-radiating chest pain. Similar symptoms in the past requiring thoracentesis 12/23/16, post- procedure CXR w/ residual small loculated right pleural effusion and right perihilar mass, images reviewed by me. Now w/ recurrent complaints of SOB and chest pain as above, found to be tachycardic by PCP. Denies fever, chills or cough. On arrival, BP 130/70, HR 124, O2 sat 96% on 3L NC, Afebrile. Hemoglobin 9.9, previously 12.1 on 12/23/16. K+ 2.8. Trop negative. INR 1.1. CXR with stable appearance of right hemithorax, no significant change. CTA Pulm negative for PE, persistent extensive atelectasis and partially loculated effusion in the right chest. Follows w/ Dr. Johnson and Dr. Ireland as outpatient. CBC/BMP: 02/17/17 1221 02/17/17 1221 Significant Findings Laboratory Tests Test 02/16/17 14:50 02/17/17 01:22 02/17/17 08:50 02/17/17 12:21 Red Blood Count 3.18 MIL/MM3 (4.00-5.30) 3.12 MIL/MM3 (4.00-5.30) Hemoglobin 9.9 GM/DL (11.6-15.3) 9.7 GM/DL (11.6-15.3) Hematocrit 29.7 % (35.0-46.0) 29.5 % (35.0-46.0) Monocytes (%) (Auto) 12.0 % (0.0-8.0) Lymphocytes # (Auto) 0.9 TH/MM3 (1.0-4.8) 0.6 TH/MM3 (1.0-4.8) Albumin 3.3 GM/DL (3.4-5.0) 2.9 GM/DL (3.4-5.0) Potassium Level 2.8 MEQ/L (3.5-5.1) 3.1 MEQ/L (3.5-5.1) Carbon Dioxide Level 32.7 MEQ/L (21.0-32.0) Troponin I LESS THAN 0.02 NG/ML LESS THAN 0.02 NG/ML LESS THAN 0.02 NG/ML Pleural Fluid WBC 450 /MM3 (0-10) Pleural Fluid RBC 24016 /MM3 (0-0) Neutrophils (%) (Auto) 83.7 % (16.0-70.0) Random Glucose 166 MG/DL (74-106) Estimat Glomerular Filtration Rate 82 ML/MIN (>89) Hospital Course Mrs. Travis is a 77-year-old female. She was admitted secondary to a right pleural effusion related to cancer. Pleural effusion was treated with thoracentesis. After thoracentesis and pneumothorax developed. A chest tube was considered. After lab duration on this possibility and monitoring of serial chest x-rays it was decided that the patient does not need immediate chest tube at this time, based on lack of significant symptoms. Patient requests discharge this evening and she is medically stable for discharge at this time. She is to return for any worsening of her respiratory symptoms which have improved after thoracentesis. She is to follow up with oncology, PCP , and pulmonology as an outpatient. Pt Condition on Discharge: Stable Discharge Disposition: Discharge Home Discharge Time: <= 30 minutes Discharge Instructions DIET: Follow Instructions for: As Tolerated, No Restrictions Activities you can perform: Regular-No Restrictions Follow up Referrals: Oncology - 2 Weeks PCP Follow-up - 2 Weeks Pulmonology - 1 Week Continued Medications: Alprazolam (Alprazolam) 0.25 Mg Tab 0.25 MG PO TID for ANXIETY, TAB 0 Refills Amlodipine (Amlodipine) 5 Mg Tab 5 MG PO DAILY for Blood Pressure Management, #30 TAB 0 Refills Buspirone (Buspirone) 5 Mg Tab 5 MG PO BID for Anxiety, TAB 0 Refills Cefuroxime (Cefuroxime) 500 Mg Tab 500 MG PO Q12HR, #14 TAB Folic Acid (Folic Acid) 0.4 Mg Tab 400 MCG PO DAILY for Nutritional Supplement, TAB 0 Refills Hydrochlorothiazide (Hydrochlorothiazide) 25 Mg Tab 25 MG PO DAILY, #30 TAB 0 Refills Hydrocodone-Homatropine Liq (Hydromet Liq) 5-1.5 Mg/5 Ml Syrp 7 ML PO BID PRN for COUGH, ML 0 Refills Metoprolol Succinate ER 24 HR (Metoprolol Succinate ER 24 HR) 100 Mg Tab 150 MG PO BID, #30 TAB 0 Refills Potassium Chloride ER (Potassium Chloride ER) 20 Meq Tab 40 MEQ PO BID for Electrolyte Replacement, #60 TAB 0 Refills Sertraline (Sertraline) 100 Mg Tab 100 MG PO DAILY, #30 TAB 0 Refills Tramadol (Tramadol) 50 Mg Tab 50 MG PO Q6H PRN for PAIN, TAB 0 Refills Lee Quan MD Feb 17, 2017 17:41
[2017-02-17] MEDS ORDERED: POTA-163 PO (17:45)
[2017-02-17] MEDS ORDERED: traMADol HCL 50 MG TAB PO PRN (18:00)
[2017-02-17] MEDS ORDERED: METOPROLOL SUCCINATE 50 MG EXTENDED RELEASE TAB PO SCH (21:00)
[2017-02-17] MEDS ORDERED: ZOLPIDEM TARTRATE 5 MG TAB PO PRN (21:00)
== END 2017-02-17 18:45 | disposition home or self-care (01) | DRG 187 ==
LOC: NEPC 13:59 → NEDA 19:16 → NEPHCDU 20:42 → N05B 02-17 15:21
PROVIDERS: ADMIT Hospitalist; ATTEND Hospitalist
PROC: 0W993ZZ Drainage of Right Pleural Cavity, Percutaneous Approach (ICD-10-PCS; principal; 2017-02-17)
DX: J90 Pleural effusion, not elsewhere classified (principal); J95.811 Postprocedural pneumothorax; Z99.81 Dependence on supplemental oxygen; C34.90 Malignant neoplasm of unspecified part of unspecified bronchus or lung; D63.0 Anemia in neoplastic disease; J98.11 Atelectasis; I10 Essential (primary) hypertension; R00.0 Tachycardia, unspecified; E87.6 Hypokalemia; F41.9 Anxiety disorder, unspecified; Z85.3 Personal history of malignant neoplasm of breast; Z85.43 Personal history of malignant neoplasm of ovary; Z92.3 Personal history of irradiation; Z92.21 Personal history of antineoplastic chemotherapy
CPT/HCPCS: 32555; 71010; 71020; 71275; 80053; 82550; 83735; 84484; 85025; 85610; 85730; 87070; 87205; 88112; 88305; 89051; 96360; 96361; C1729; G0378; J1642; J7030; Q9967

== ENCOUNTER 2017-05-01 06:49 | Day surgery (SDC) | payer OTHER ==
[~2017-05-01] VITALS: Ht 165.1 cm; Wt 79.1 kg
[2017-05-01 07:05] VITALS: BP 120/76; PULSE 100; RESP 20; TEMP 97.4; O2SAT 97
[2017-05-01] MEDS ORDERED: SODIUM CHLORIDE 0.9% 1000 ML IV SCH (07:15)
[2017-05-01 07:40] LABS: AUTOMATED NEUTROPHIL # 4.4 TH/MM3 (1.8-7.7); BASOPHIL % 0.8 % (0.0-2.0); EOSINOPHIL # 0.1 TH/MM3 (0-0.4); EOSINOPHIL % 1.1 % (0.0-4.0); HEMATOCRIT 23.4 % (35.0-46.0); HEMOGLOBIN 7.7 GM/DL (11.6-15.3); LYMPH % 13.3 % (9.0-44.0); LYMPHOCYTE # 0.8 TH/MM3 (1.0-4.8); MEAN CELL VOLUME 87.7 FL (80.0-100.0); MEAN CORPUSCULAR HEMOGLOBIN 28.9 PG (27.0-34.0); MEAN CORPUSCULAR HGB CONC 32.9 % (32.0-36.0); MEAN PLATELET VOLUME 6.9 FL (7.0-11.0); MONOCYTE # 0.7 TH/MM3 (0-0.9); NEUT % 72.8 % (16.0-70.0); PLATELET COUNT 204 TH/MM3 (150-450); RED BLOOD COUNT 2.67 MIL/MM3 (4.00-5.30); RED CELL DISTRIBUTION WIDTH 18.1 % (11.6-17.2); WHITE BLOOD COUNT 6.1 TH/MM3 (4.0-11.0)
[2017-05-01] MEDS ORDERED: LIDOCAINE HCL 1% 20 ML VIAL ONE ×2 (07:58→11:04)
[2017-05-01 08:46] LABS: INTERNATIONAL NORMALIZED RATIO 1.1 RATIO; PROTHROMBIN TIME - PATIENT 11.6 SEC (9.8-11.6)
[2017-05-01] MEDS ORDERED: MIDAZOLAM HCL 5 MG/5 ML VIAL ONE (09:25)
[2017-05-01] MEDS ORDERED: fentaNYL CITRATE 250 MCG/5 ML AMP ONE (09:25)
[2017-05-01 11:09] VITALS: BP 109/79; PULSE 83; RESP 17; TEMP 98.7; O2SAT 98
--- NOTE | 2017-05-01 11:10 | RADRPT ---
EXAM DATE/TIME: 05/01/2017 10:54 [facility] COMPARISON: CHEST EXPIRATION ONLY, February 17, 2017, 12:01. INDICATIONS : Post right side thoracentesis. MEDICAL HISTORY : Carcinoma, lung. ovarian cancer SURGICAL HISTORY : Appendectomy. Hysterectomy. ENCOUNTER: Initial ACUITY: 1 day PAIN SCORE: 0/10 LOCATION: Bilateral chest FINDINGS: Stable left IJ [id number]. Small loculated right hydropneumothorax with predominantly subpulmonic pneumothorax component. This is consistent with patient's known history of lung sequestration. Cardio mediastinal contours are stable. Remainder of the exam is unchanged. CONCLUSION: 1. Small loculated right hydropneumothorax with predominantly subpulmonic pneumothorax component foll owing thoracentesis. This is consistent with patient's known history of lung sequestration. Colton White MD on May 01, 2017 at 11:07 Board Certified Radiologist. This report was verified electronically.
[2017-05-01 11:24] VITALS: BP 128/77; PULSE 82; RESP 18; O2SAT 99
--- NOTE | 2017-05-01 12:56 | RADRPT ---
EXAM DATE/TIME: 05/01/2017 09:43 [facility] COMPARISON: US GUIDED THORACENTESIS RIGHT, February 17, 2017, 8:05. INDICATIONS : Right pleural effusion. SEDATION TIME: 20 minutes MEDICATION(S): 1.) 2 mg midazolam (Versed) IV Port 2.) 50 mcg fentanyl (Sublimaze) IV Port RN(s): Gracia Charles RN MEDICAL HISTORY : Ovarian and lung cancer. Chemotherapy and Radiation. SURGICAL HISTORY : Left breast biopsy. Appendectomy. Hysterectomy. Lung biopsy ENCOUNTER: Subsequent ACUITY: 1 day PAIN SCORE: 2/10 LOCATION: Right chest FLUID: Total volume of 500 cc of clear, red fluid was removed. Fluid was discarded. Thoracentesis was therapeutic only. TECHNIQUE: 1. Ultrasound guidance for thoracentesis. 2. Thoracentesis. The risks, benefits, and alternatives to ultrasound guided thoracentesis were explained to the patien t in lay simple terms, including the risk of bleeding and infection. Written and verbal informed con sent was obtained. Appropriate area for thoracentesis was marked under ultrasound guidance with the patient in the uprig ht position. Overlying skin was prepped and draped in the usual sterile fashion and with local anest hetic, a dermatotomy was made with an 11 blade scalpel. A 6 [place] thoracentesis catheter was placed in the pleural space and fluid was removed. Catheter was then removed and a sterile dressing applie d. There were no immediate complications. The patient tolerated the procedure well and the left the ultrasound suite in stable condition. Chest radiograph is to be obtained. CONCLUSION: Uncomplicated ultrasound guided thoracentesis. Colton White MD on May 01, 2017 at 12:52 Board Certified Radiologist. This report was verified electronically.
[2017-05-01] MEDS ORDERED: IMPLANTED VASCULAR ACCESS PORT - SODIUM CHLORIDE FLUSH PRN IV FLUSH (13:00)
[2017-05-01] MEDS ORDERED: IMPLANTED VASCULAR ACCESS PORT - SODIUM CHLORIDE FLUSH IV FLUSH SCH (13:00)
[2017-05-01 13:27] VITALS: BP 133/66; PULSE 86; RESP 18; O2SAT 99
== END 2017-05-01 13:30 | disposition home or self-care (01) ==
LOC: HROP 06:49 → HRIP 06:54 → HROP 13:30
PROVIDERS: ATTEND Thoracic Surgery (Cardiothoracic Vascular Surgery)
DX: J90 Pleural effusion, not elsewhere classified (principal); Z85.43 Personal history of malignant neoplasm of ovary; Z85.118 Personal history of other malignant neoplasm of bronchus and lung
CPT/HCPCS: 32555; 71045; 85025; 85610; 85730; C1729; J1642; J2250; J3010; J7030

== ENCOUNTER 2017-07-27 09:16 | Day surgery (SDC) | payer OTHER ==
[2017-07-27 09:44] VITALS: BP 117/70; PULSE 86; RESP 16; TEMP 97.2; O2SAT 97
--- NOTE | 2017-07-27 12:02 | RADRPT ---
EXAM DATE: 07/27/2017 10:56 AM EDT AGE/SEX: 77 years / Female INDICATIONS: Recurrent right pleural effusion. Evaluate for right thoracentesis. CLINICAL DATA: This is the patient's subsequent encounter. Patient reports that signs and symptoms h ave been present for 3 months and indicates a pain score of 0/10. MEDICAL/SURGICAL HISTORY: . Ovarian and lung cancer. Chemotherapy and Radiation. . Left breast biopsy. Appendectomy. Hysterectomy. Lung biopsy. Thoracentesis. COMPARISON: C, CHEST EXPIRATION ONLY, 05/01/2017. [facility], CT CHEST W/ CONTRAST, 06/21/2017. [facility] [place] GUIDED THORACENTESIS RIGHT, 05/01/2017. C, CHEST EXPIRATION ONLY, 02/17/2017. . MEASUREMENTS: Skin To Parietal Pleura:__2.6 cm Skin To Max Safe Depth:__4.0 cm Estimated Fluid Volume:__248 cc Fluid Composition:__complex FINDINGS: Pleural effusion as above. CONCLUSION: 1. There is a rogjy-[id number]-vsaunzws size mildly complex right pleural effusion. 2. The patient has undergone to prior right thoracenteses with demonstration of a trapped lung which does not reexpand to fill the pleural space. Subsequently, the fluid reaccumulated. The fluid has be en previously sent for cytology. I discussed these findings with the patient and Dr. Johnson. Since it is likely that the lung will not reexpand and quickly reaccumulate, the patient desires to avoid a ny invasive procedure at this time. She does not feel that positive cytology will alter her decision to avoid any additional treatment at this time. Electronically signed by: Lanre Koch MD 07/27/2017 12:00 PM EDT
[2017-07-28] MEDS ORDERED: ZOLP5TAB3 PO (13:44)
== END 2017-07-27 10:46 | disposition home or self-care (01) ==
LOC: HRAD 09:16 → HRIP 09:21 → HRAD 10:46
PROVIDERS: ATTEND Internal Medicine Hematology & Oncology
DX: J90 Pleural effusion, not elsewhere classified (principal); C34.91 Malignant neoplasm of unspecified part of right bronchus or lung; I10 Essential (primary) hypertension; Z90.710 Acquired absence of both cervix and uterus
CPT/HCPCS: 76604

== ENCOUNTER 2017-07-31 06:18 | Day surgery (SDC) | payer OTHER ==
[~2017-07-31] VITALS: Ht 165.1 cm; Wt 78.2 kg
[~2017-07-31 06:18] MED LIST changes: -CEFU1TAB20 PO; -FOLI400T PO; -HYCOS PO; -POTA-163 PO; +ZOLP5TAB3 PO
[2017-07-31 07:10] VITALS: BP 112/68; PULSE 81; RESP 18; TEMP 98.2; O2SAT 81
[2017-07-31] MEDS ORDERED: SODIUM CHLORIDE 0.9% 1000 ML IV SCH (07:15)
[2017-07-31] MEDS ORDERED: ceFAZolin 2 GM PREMIX 50 ML - implanted port removal IV SCH (07:15)
[2017-07-31] MEDS ORDERED: fentaNYL CITRATE 250 MCG/5 ML AMP ONE (07:53)
[2017-07-31] MEDS ORDERED: MIDAZOLAM HCL 5 MG/5 ML VIAL ONE (07:53)
[2017-07-31] MEDS ORDERED: LIDOCAINE 1%/EPINEPHrine 1:100,000 SOLN 20 ML VIAL ONE (07:54)
--- NOTE | 2017-07-31 08:35 | PD.RAD ---
Post Procedure Progress Note Pre Procedure Diagnosis: (1) Lung cancer Post Procedure Diagnosis: (1) Lung cancer Procedure Date: Jul 31, 2017 Supervising Radiologist: Lee Cabrera Estimated blood loss: 2cc Anesthesia: Local, Conscious Sedation Plan of Activity Patient to Unit: ROPU Patient Condition: Good Additional Comments: Port removed from the left chest without difficulty Full dictated report to follow See PACS Report for procedural detail/treatment Lee Cabrera MD Jul 31, 2017 08:35
[2017-07-31 08:48] VITALS: BP 111/69; PULSE 83; RESP 16; TEMP 97.9; O2SAT 94
[2017-07-31 09:18] VITALS: BP 122/76; PULSE 84; RESP 17; O2SAT 92
[2017-07-31 09:48] VITALS: BP 139/78; PULSE 83; RESP 19; O2SAT 96
--- NOTE | 2017-08-02 16:07 | RADRPT ---
INDICATIONS: Patient presents with lung cancer no longer in need of port. CLINICAL DATA: This is the patient's initial encounter. Patient reports that signs and symptoms have been present for > 1 year and indicates a pain score of 0/10. Location: Chest, Laterality: MEDICAL/SURGICAL HISTORY: Arthritis. Carcinoma, lung. Hypertension. Pleural EffusionOvarian cancerCOPD Breast biopsy. Hysterectomy. Appendectomy. Thoracentesis COMPARISON: No prior exams available for comparison. FLUORO TIME (min): IMAGE SERIES: ACCESS SITE: SEDATION TIME (min): 30 CONTRAST (cc): MEDICATION(S): 3mg midazolam (Versed) IV 150mcg fentanyl (Sublimaze) IV DEVICE(S): PROCEDURE: 1. Removal of [id number]. 2. Conscious sedation with continuous EKG and oximetry monitoring. The risk, benefits and potential complications of [id number] removal were discussed. Written conse nt was obtained. The patient was placed supine. The chest wall was prepped in sterile fashion. Full sterile techniqu e was used, including cap, mask, sterile gloves and gown, and a large sterile sheet. Hand hygiene an d 2% chlorhexidine and/or Betadine/alcohol prep was utilized per protocol for cutaneous antisepsis. The skin and subcutaneous tissues were infiltrated with local anesthetic solution. A small incision w as made, the subcutaneous pocket was opened. The port was dissected from the subcutaneous tissues and easily removed in one piece. The pocket incision was closed with subcuticular Vicryl suture. Steri -Strips were applied. Conscious sedation was performed with the prescribed dosages and duration as above in the presence of an independent trained radiology nurse to assist in the monitoring of the patient. EKG and oximetry remained stable throughout the procedure. The patient tolerated the procedure well and there were no complications. The patient was sent to post anesthesia recovery in stable condition. CONCLUSION: 1. Uncomplicated port removal as above. Electronically signed by: Lee Cabrera MD 08/02/2017 3:45 PM EDT
== END 2017-07-31 11:00 | disposition home or self-care (01) ==
LOC: HROP 06:18 → HRIP 06:19 → HROP 11:00
PROVIDERS: ATTEND Internal Medicine Hematology & Oncology
DX: Z45.2 Encounter for adjustment and management of vascular access device (principal); C34.91 Malignant neoplasm of unspecified part of right bronchus or lung; I10 Essential (primary) hypertension; M19.90 Unspecified osteoarthritis, unspecified site; Z90.710 Acquired absence of both cervix and uterus
CPT/HCPCS: 36590; 99152; 99153; J0690; J2250; J3010; J7030